=== PATIENT | female | born 1985 | race Caucasian/White ===

== ENCOUNTER → 2019-11-26 10:39 | Outpatient (BNVA) | payer BC, SELFPAY | PROVIDERS: Family Provider Nurse Practitioner Family; PCP Nurse Practitioner Family; Visit Provider Nurse Practitioner Family | DX: E11.59 Type 2 diabetes mellitus with other circulatory complications (principal); E78.5 Hyperlipidemia, unspecified; I10 Essential (primary) hypertension; E53.8 Deficiency of other specified B group vitamins; G56.03 Carpal tunnel syndrome, bilateral upper limbs; E78.2 Mixed hyperlipidemia | CPT/HCPCS: 36415; 80053; 80061; 82607; 83036; 83921; 84443; 85025 ==

== ENCOUNTER → 2019-12-02 07:39 | Outpatient (BNVA) | payer BC, SELFPAY | PROVIDERS: Family Provider Nurse Practitioner Family; PCP Nurse Practitioner Family; Referring Provider Nurse Practitioner Family; Visit Provider Specialist | DX: G56.03 Carpal tunnel syndrome, bilateral upper limbs (principal); F17.210 Nicotine dependence, cigarettes, uncomplicated | CPT/HCPCS: 95910 ==

== ENCOUNTER 2019-12-03 19:53 | Emergency (ER) | payer BC, SELFPAY ==
[2019-12-03 20:28] VITALS: BP 143/113; PULSE 93; RESP 16; TEMP 36.6; O2SAT 97; BMI 31.2
[2019-12-03 22:20] VITALS: BP 153/95; PULSE 93; RESP 18; TEMP 36.6; O2SAT 99
--- NOTE | 2019-12-03 22:25 | PC.NURSE ---
had nerve condution study yesterday am, and pain has gotten worse
[2019-12-03 22:30] VITALS: RESP 18
[2019-12-03] MEDS: morphine 4 mg/mL SDV 1 mL IM (22:30)
--- NOTE | 2019-12-03 22:49 | ED_ITS ---
HPI - Extremity Problem General: Chief complaint: Extremity Injury, Upper Stated complaint: pain in both hands Time Seen by Provider: 12/03/19 21:51 Source: patient Mode of arrival: ambulatory Limitations: no limitations History of Present Illness: HPI Narrative: Patient is a 34-year-old female who presents to ED today with complaints of bilateral hand pain. Patient states she is having numbness, tingling, burning to her hands. This is been present for several weeks. She has been seen by her primary care doctor. She is recently had nerve conduction studies done but does not know the results of these. Patient states her pain is even worse after the conduction studies. Patient reports they are thinking she might have bilateral carpal tunnel. MD Complaint: extremity pain Onset (ago): week(s) Pain Consistency: constant Location: left, right and upper extremity Quality: burning Radiation: none Relieving factors: nothing Exacerbating factors: nothing Associated symptoms: Deny chest pain, fever(s) or rash Review of Systems Const: Denies: fever, chills or body aches Card: Denies: chest pain, palpitations, irregular heart rhythm, edema, lightheadedness, syncope, pre-syncope, shortness of breath on exertion, shortness of breath when lying down, leg pain with exertion or bluish discoloration of hands/feet Resp: Denies: shortness of breath, productive cough, coughing up blood or chest congestion GI: Denies: abdominal pain, nausea or vomiting Musc: Reports: extremity pain; Denies: neck pain, back pain, extremity swelling, joint pain, joint swelling or limited range of motion Skin/Breast: Denies: rash, itching, skin tenderness, sores or changes in skin color Neuro: Reports: numbness in extremities and changes in sensation; Denies: headache PFSH ED PFSH: Medical History (Updated 12/03/19 @ 22:50 by CARLY Mary) Allergic reaction to bee sting Anxiety DM type 2 (diabetes mellitus, type 2) Essential hypertension GERD (gastroesophageal reflux disease) History of hepatitis C Hyperlipemia IUD contraception PCOS (polycystic ovarian syndrome) Primary herpes simplex infection of lips Vitamin B 12 deficiency Vitamin D deficiency Surgical History (Updated 11/26/19 @ 23:33 by DEMETRIUS Garrido) S/P section Social History Smoking and tobacco status: current every day smoker 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 Physical Exam Const: COMMON NORMALS: no apparent distress, oriented x3, no limitations, healthy appearing, alert and well nourished Extremity: COMMON NORMALS: normal to inspection, full ROM, normal capillary refill, no joint enlargement, no clubbing, cyanosis or edema, no calf tenderness and no pedal edema Neuro: COMMON NORMALS: oriented x3, moves all extremities and no focal motor deficits SENSORIUM/ORIENTATION: Yes alert OTHER: reports numbness/tingling diffusely throughout bilateral hands Course Vital Signs: Vital signs: Vital Signs Temperature 97.9 F 12/03/19 22:20 Pulse Rate 93 12/03/19 22:20 Respiratory Rate 18 12/03/19 22:30 Blood Pressure 153/95 12/03/19 22:20 Pulse Oximetry 99 12/03/19 22:20 Discharge Plan Discharge Patient Disposition: Home, Self-Care Clinical Impression: Carpal tunnel syndrome, bilateral Condition: Stable Prescriptions: No Action Trintellix 20 mg tablet 20 mg PO DAILY RF: 0 labetalol 100 mg tablet 100 mg PO BID RF: 0 ibuprofen [IBU] 800 mg tablet 800 mg PO TID RF: 0 omeprazole 20 mg capsule,delayed release(DR/EC) 20 mg PO DAILY RF: 0 epinephrine [EpiPen 2-Duong] 0.3 mg/0.3 mL auto-injector 0.3 mg IM Q10M PRN (Reason: Allergic Reaction) RF: 0 Mirena 20 mcg/24 hours (5 yrs) 52 mg intrauterine device INTRAUTERI RF: 0 tizanidine 4 mg capsule 4 mg PO TID PRN (Reason: Muscle Spasm) RF: 0 Ozempic 0.25 mg or 0.5 mg(2 mg/1.5 mL) pen injector 0.25 mg SUBCUT .weekly Qty: 1.5 RF: 5 Discharge Orders: Discharge Order (Routine); Ordered 12/03/19 Ordered By: Kavya Mojica Referrals: Tori Ware, [employer] [Primary Care Provider] - Activity Restrictions/Additional Instructions: As discussed please follow up with primary care and with Dr. Rod after test results of your nerve conduction studies come back. Coding Level of Care Code ED Member Service Specialist for Rickie Martinez
[2019-12-03 23:00] VITALS: BP 150/96; PULSE 90; RESP 18; TEMP 36.6; O2SAT 99
--- NOTE | 2019-12-03 23:17 | PC.NURSE ---
Agree with documented assessment.
== END 2019-12-03 23:00 | disposition home or self-care (01) ==
PROVIDERS: Emergency Provider Physician Assistant; Family Provider Nurse Practitioner Family; PCP Nurse Practitioner Family
DX: G56.03 Carpal tunnel syndrome, bilateral upper limbs (principal); E11.9 Type 2 diabetes mellitus without complications; I10 Essential (primary) hypertension; E78.5 Hyperlipidemia, unspecified; F17.200 Nicotine dependence, unspecified, uncomplicated
CPT/HCPCS: 96372; 99281; 99283; J2270; J2930

== ENCOUNTER 2019-12-16 11:02 | Day surgery (SDC) | payer BC, SELFPAY ==
[2019-12-13 13:34] VITALS: BMI 31.8
[2019-12-16 11:17] LABS: OR HCG Qualitative Urine Negative (Negative)
[2019-12-16 11:26] VITALS: BP 116/83; PULSE 76; RESP 18; TEMP 36.3; O2SAT 96
[2019-12-16 11:44] LABS: Glucose Point of Care 83 mg/dL (70-110)
[2019-12-16] MEDS: sodium chloride 0.9% 1,000 ML 30 ML IV (11:48)
[2019-12-16] MEDS: gabapentin 300 mg Capsule PO (11:51)
--- NOTE | 2019-12-16 12:19 | ANES.PREANE2 ---
Pre-Anesthetic Assessment Pre-Anesthetic Assessment: Height/Weight: Height 1.57 m Weight 78.925 kg Temp Pulse Resp BP Pulse Ox 97.4 F L 76 18 116/83 96 12/16/19 11:26 12/16/19 11:26 12/16/19 11:26 12/16/19 11:26 12/16/19 11:26 Preop Diagnosis: Carpal tunnel syndrome Proposed Procedure: Operation Date: 12/16/19 13:20 Proposed Procedures p Open release of the median nerve at the wrist on the right 12376 G56.03(Right) - Gilmar Joyner MD Familial anesthetic complications: None Was Beta David taken within 24 hours: Yes Last intake: Intake Last Liquid Date 12/16/19 Last Liquid Time 06:00 Last Solid Date 12/15/19 Last Solid Time 21:00 Social: Social History: Tobacco and No alcohol Packs per day: 2 ppd Exam: Pre-Anes Outpt Exam: alert, oriented x 3, clear to auscultation bilaterally and regular rate & rhythm Airway: Cervical ROM: WNL MP: 1 Dentition: Chipped Pulmonary: Pulmonary: Sleep apnea (has since lost 100 lbs - has cpap, but doesn't wear it) CV/HEM: CV/HEM: Angina (Stable) (atypical) and HTN : : None reported Hepatic: Hepatic: None reported GI: GI: GERD Metabolic: Metabolic: DM Musc/skel: Musc/skel: Lower Back Pain Neuropsych: Neuropsych: Neuropathy Anesthetic Plan: ASA status: 2 Anesthesia: MAC Risk of > 500 ml blood loss (7ml/kg in children): No Meds/Allergies Current Medications: Current Medications Generic Name Dose Route Start Last Admin Trade Name Freq PRN Reason Stop Dose Admin Sodium Chloride 1,000 mls @ 30 ml s/hr 12/16/19 11:15 12/16/19 11:48 Sodium Chloride 0.9% IV 12/17/19 11:14 30 mls/hr .Q24H FATOUMATA Administration PFSH Anesthesia PFSH: Social History (Updated 12/13/19 @ 13:31 by Renuka Ulloa) Smoking and tobacco status: current every day smoker Alcohol intake: never Lives independently: Yes Household members: spouse Marital status: Current occupational status: employed 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
--- NOTE | 2019-12-16 12:31 | P.HPUD_ITS ---
Surgery/Procedure H&P Update DATE OF PROCEDURE: December 16, 2019 DATE H&P PERFORMED: 11/26/19 H&P UPDATE INFORMATION: I have reviewed H&P completed within last 30 days and H&P is in [facility] [place] on date indicated PREOP DIAGNOSIS: Carpal tunnel syndrome PRIMARY INDICATION FOR PROCEDURE: Pain/Numbness PLANNED PROCEDURE: Operation Date: 12/16/19 13:20 Proposed Procedures Open release of the median nerve at the wrist on the right 73527 G56.03 - Gilmar Joyner MD
--- NOTE | 2019-12-16 13:01 | P.OP_ITS ---
Brief Operative Note: Date of procedure: 12/16/19 Pre-op diagnosis: Median nerve entrapment at the right wrist Post-op diagnosis: same Procedure Done: Open Release of the Median Nerve at the right wrist Surgeon: Gilmar Joyner Estimated blood loss (mL): 10 Complications: None. Post-op Plan: Home per Ambulatory Surgery protocol. Condition: stable Disposition: same day Coding Level of Care Code Acute Escalator Service Mechanic for Rickie Martinez
[2019-12-16] MEDS: neomycin-poly-bacitracin oint 28 gm 1 APPLIC TOPICAL (13:41)
[2019-12-16 13:53] VITALS: BP 110/77; PULSE 77; RESP 18; TEMP 36.5; O2SAT 95
[2019-12-16 14:23] VITALS: BP 121/86; PULSE 57; RESP 18; O2SAT 99
--- NOTE | 2019-12-16 16:48 | P.OP_ITS ---
Operative Report Date of procedure: December 16, 2019 Pre-op Diagnosis: Carpal tunnel syndrome Post-op diagnosis: same Procedure Done: Open release of the median nerve at the right wrist. Pathology: none sent Surgeon: Gilmar Joyner Anesthesia: MAC Estimated blood loss: Minimal IV fluids (mL): 400 Complications: None Condition: stable Disposition: same day Brief History: The patient is a 34-year-old female with symptomatic, electrodiagnostically confirmed severe median nerve entrapment at the wrists. Symptoms progressed and were refractory to conservative treatment measures, including wrist splinting. After review of the diagnostic and treatment options with the risks/potential benefits/rationale for each, the patient requested to proceed with open release of the median nerve at the right wrist. Procedure: After routine preoperative evaluation and informed consent were obtained, the patient was taken to the Operating Room and positioned supine on the operating table. She was maintained under intravenous sedation by Anesthesia personnel. The right upper extremity was extended on an arm board. A proposed palmar incision was marked with a sterile skin marker. The extremity was scrubbed with Betadine and prepped with DuraPrep from the fingertips to the axilla. Sterile towels, sterile drapes, and a sterile stockinette were utilized for draping of the operative field. An opening was fashioned in the sterile stockinette over the palmar aspect of the right hand. An [place] surgical barrier was placed. The proposed incision site was infiltrated with 1% Xylocaine with Epinephrine. A skin incision was made and carried down into the subcutaneous tissues. Self-retaining retractors were placed. The markedly thickened transverse carpal ligament was divided over the course of the median nerve in the palm. The ligament was divided distally until the palmar fat pad was encountered. Proximally, the ligament was divided with fine Metzenbaum scissors to a point approximately 2 centimeters above the wrist crease. There were moderate diffuse epineural adhesions, which were treated with limited a dhesiolysis. There was no evidence of residual median nerve impingement or entrapment within the visualized segment of the nerve at the completion of the procedure. The wound was then copiously irrigated with antibiotic irrigation. Hemostasis was ensured with the bipolar electrocautery. Wound closure was performed as a single layer utilizing 4-0 Nylon in a simple interrupted fashion. Antibiotic ointment was placed along the incision line. A bulky hand dressing was fashioned utilizing a combination of Kerlix fluffs, a Kerlix wrap, and an MIGUEL/elastic bandage. The patient was transported to the Ambulatory Surgery Area for discharge home, as per the Ambulatory Surgery protocol. The patient tolerated the procedure well. All sponge, needle, and instrument counts were correct at the completion of the procedure.
== END 2019-12-16 14:45 | disposition home or self-care (01) ==
PROVIDERS: Family Provider Nurse Practitioner Family; PCP Nurse Practitioner Family; Visit Provider Specialist
PROC: (CPT 64721; principal; 2019-12-16 12:40)
DX: G56.01 Carpal tunnel syndrome, right upper limb (principal); I10 Essential (primary) hypertension; K21.9 Gastro-esophageal reflux disease without esophagitis; E11.40 Type 2 diabetes mellitus with diabetic neuropathy, unspecified; F17.210 Nicotine dependence, cigarettes, uncomplicated; E78.2 Mixed hyperlipidemia
CPT/HCPCS: 64721; 12345; 36416; 81025; 82962; 84703; J0690; J2001; J2704; J3010; J3490; J7030

== ENCOUNTER 2020-02-19 16:04 | Inpatient (IN) | payer SELFPAY ==
[2020-02-19 16:14] VITALS: BP 178/123; PULSE 118; RESP 20; TEMP 36.9; O2SAT 97; BMI 31.8
--- NOTE | 2020-02-19 16:18 | ED_ITS ---
HPI - Psych General: Chief Complaint: Psychiatric Symptoms Stated Complaint: mhe Time Seen by Provider: 02/19/20 16:06 Source: patient Mode of arrival: ambulatory Limitations: no limitations History of Present Illness: HPI Narrative: 35-year-old female who has a history of depression and is homeless and has a history of drug abuse. She states she is having increasing depression and thoughts of suicide. She has plans of killing herself by running out in traffic. She has not been taking any meds. complaint: suicidal ideation and feels depressed Onset (ago): week(s) Duration: constant History of same: Yes Relieving factors: none Exacerbating factors: none Context: recent drug abuse Associated symptoms: Reports depression and suicidal ideation Review of Systems Const: Denies: fever, chills, body aches or change in appetite Eyes: Denies: blurry vision or eye discomfort ENMT: Denies: throat pain or dental pain Card: Denies: chest pain Resp: Denies: shortness of breath GI: Denies: abdominal pain, nausea, vomiting or diarrhea : Denies: painful urination Musc: Denies: neck pain or back pain Skin/Breast: Denies: rash Neuro: Denies: headache Psych: Reports: depression and suicidal ideation [place]/Lymph: Denies: easy bruising All/Imm: Denies: hives PFSH ED PFSH: Medical History Allergic reaction to bee sting Anxiety DM type 2 (diabetes mellitus, type 2) Essential hypertension GERD (gastroesophageal reflux disease) History of hepatitis C Hyperlipemia IUD contraception PCOS (polycystic ovarian syndrome) Primary herpes simplex infection of lips Vitamin B 12 deficiency Vitamin D deficiency Surgical History History of carpal tunnel surgery (~12/16/19) Right hand, Dr. 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 [employer] History of recent travel: No Female Reproductive History: Date of last menstrual period: 09/30/19 Physical Exam Const: COMMON NORMALS: no apparent distress, oriented x3 and healthy appearing HENMT: COMMON NORMALS: normocephalic and head/scalp atraumatic HEAD & SCALP: normocephalic and atraumatic Eye: COMMON NORMALS: PERRL and EOMs intact bilaterally PUPIL: Yes PERRL Neck/C-Spine: COMMON NORMALS: full ROM and supple Chest: COMMONS NORMALS: inspection of chest normal and palpation of chest normal Resp: COMMON NORMALS: normal respiratory effort, no retractions, no use of accessory muscles and clear to auscultation bilaterally AUSCULTATION: clear to auscultation bilaterally Cardio: COMMON NORMALS: regular rate, regular rhythm and no murmurs RATE: regular rate RHYTHM: regular rhythm GI: COMMON NORMALS: normal to inspection, nondistended, normoactive bowel sounds, soft to palpation, non-tender and no masses PALPATION: Yes soft Extremity: COMMON NORMALS: normal to inspection and full ROM Neuro: COMMON NORMALS: oriented x3, moves all extremities and no focal motor deficits Psych: COMMON NORMALS: mental status grossly normal, thought process normal and cooperative MOOD & AFFECT: Yes depressed mood and Yes sad THOUGHT PROCESS: normal thought process THOUGHT CONTENT: Yes suicidality Skin: COMMON NORMALS: no rashes or lesions noted and no wounds GENERAL SKIN EXAM: no rashes or lesions noted MDM - Psych MDM Narrative: Medical decision making narrative: Patient presents here with suicidal ideations with a plan of killing herself. Patient is medically cleared I spoke to Dr. Coleman and will admit the psychiatric unit. Lab Data: Labs: Lab Results 02/19/20 02/19/20 02/19/20 Range/Units 16:26 16:26 17:11 WBC 9.5 (4.0-10.0) 10^3/ uL RBC 5.17 (4.1-5.3) 10^6/u L Hgb 15.3 (11.5-15.3) g/dL Hct 48.3 H (37.0-47.0) % MCV 93.4 (81-99) fL MCH 29.6 (28.0-34.0) pg MCHC 31.7 (30.0-36.0) g/dL RDW 13.3 (12.1-15.1) % Plt Count 392 (130-400) 10^3/c mm MPV 9.3 (7.4-10.4) fL Neut % (Auto) 56.1 % Lymph % (Auto) 30.6 % Bartholomew % (Auto) 10.3 % Eos % (Auto) 2.1 % Baso % (Auto) 0.7 % Neut # (Auto) 5.4 (1.8-7.7) 10^3/u L Lymph # (Auto) 2.9 (0.8-4.8) 10^3/u L Bartholomew # (Auto) 1.0 H (0.2-0.9) 10^3/u L Eos # (Auto) 0.2 (0.0-0.8) 10^3/u L Baso # (Auto) 0.1 (0.0-0.1) 10^3/u L Nucleated RBC % (a uto) 0 % Nucleated RBCs # 0.0 /100WBC Sodium 143 (136-145) mmol/L Potassium 4.9 (3.5-5.1) mmol/L Chloride 105 (98-107) mmol/L Carbon Dioxide 26 (22-29) mmol/L Anion Gap 16.9 (5-19) BUN 9 (6-20) mg/dL Creatinine 0.8 (0.5-0.9) mg/dL GFR Calculation 81.6 L (90-130) mL/min Glucose 95 (65-115) mg/dL Calculated Osmolal ity 292 (285-295) mOsm/k g Calcium 9.3 (8.5-10.5) mg/dL Total Bilirubin 0.6 (0.15-1.2) mg/dL AST 21 (0-32) U/L ALT 13 (0-33) U/L Alkaline Phosphata se 102 (35-105) IU/L Total Protein 7.6 (6.6-8.7) g/dL Albumin 4.2 (3.5-5.2) g/dL Globulin 3.4 (1.3-4.6) g/dL HCG, Qual Negative (Negative) Salicylates 4.2 (3-10) mg/dL Acetaminophen < 5.0 L (10-30) ug/mL Ethyl Alcohol < 10 (0-10) mg/dL Discharge Plan Discharge Patient Disposition: Admitted As Inpatient Clinical Impression: Suicidal ideation Condition: Stable Referrals: MARYELLEN Ware FNP [Primary Care Provider] - Coding Level of Care Code ED Flow Worker for Chg Fwd Exam Comprehensive
[2020-02-19 16:50] LABS: Basophils # 0.1 10^3/uL (0.0-0.1); Basophils % 0.7 %; Eosinophils # 0.2 10^3/uL (0.0-0.8); Eosinophils % 2.1 %; Hematocrit 48.3 % (37.0-47.0); Hemoglobin 15.3 g/dL (11.5-15.3); Lymphocytes # 2.9 10^3/uL (0.8-4.8); Lymphocytes % 30.6 %; Mean Corpuscular HGB Conc 31.7 g/dL (30.0-36.0); Mean Corpuscular Hemoglobin 29.6 pg (28.0-34.0); Mean Corpuscular Volume 93.4 fL (81-99); Mean Platelet Volume 9.3 fL (7.4-10.4); Monocytes % 10.3 %; Neutrophils # 5.4 10^3/uL (1.8-7.7); Neutrophils % 56.1 %; Nucleated Red Blood Cells % 0 %; Platelet Count 392 10^3/cmm (130-400); Red Blood Count 5.17 10^6/uL (4.1-5.3); Red Cell Distribution Width 13.3 % (12.1-15.1); White Blood Count 9.5 10^3/uL (4.0-10.0)
[2020-02-19] MEDS: LORazepam 2 mg Tablet PO (17:01)
[2020-02-19 17:18] LABS: Alanine Aminotransferase 13 U/L (0-33); Albumin Level 4.2 g/dL (3.5-5.2); Alkaline Phosphatase 102 IU/L (35-105); Anion Gap 16.9 (5-19); Aspartate Amino Transferase 21 U/L (0-32); Blood Urea Nitrogen 9 mg/dL (6-20); Calcium 9.3 mg/dL (8.5-10.5); Carbon Dioxide 26 mmol/L (22-29); Chloride 105 mmol/L (98-107); Globulin 3.4 g/dL (1.3-4.6); Glomerular Filtration Rate 81.6 mL/min (90-130); Glucose 95 mg/dL (65-115); Osmolality Calculated 292 mOsm/kg (285-295); Potassium 4.9 mmol/L (3.5-5.1); Salicylate 4.2 mg/dL (3-10); Sodium 143 mmol/L (136-145); Total Bilirubin 0.6 mg/dL (0.15-1.2); Total Protein 7.6 g/dL (6.6-8.7)
[2020-02-19 17:29] LABS: Acetaminophen < 5.0 ug/mL (10-30); Alcohol Level < 10 mg/dL (0-10)
[2020-02-19 17:39] LABS: HCG Qualitative Urine. Negative (Negative)
[2020-02-19 17:45] LABS: Amphetamines Screen Urine Positive (Negative); Barbiturates Screen Urine Negative (Negative); Benzodiazepines Screen Urine Negative (Negative); Cocaine Screen Urine Negative (Negative); Opiate Screen Urine Negative (Negative); PCP Screen Urine Negative (Negative); THC Screen Urine Positive (Negative)
[2020-02-19 17:51] VITALS: BP 137/94; PULSE 98; RESP 18; O2SAT 97
[2020-02-19 17:55] VITALS: BP 139/97; PULSE 90; RESP 20; TEMP 36.8; O2SAT 98
[2020-02-19 22:00] VITALS: BP 128/82; PULSE 88; RESP 16; TEMP 37; O2SAT 99
[2020-02-20 06:00] VITALS: BP 123/82; PULSE 72; RESP 20; TEMP 36.6; O2SAT 98
[2020-02-20 06:37] VITALS: BP 123/82; PULSE 72; RESP 20; TEMP 36.6; O2SAT 98
[2020-02-20] MEDS: nicotine 21 mg Patch 1 PATCH TRANSDERMA (07:49)
[2020-02-20] MEDS: hyDROXYzine 25 mg Capsule 50 MG PO (10:13)
[2020-02-20] MEDS: haloperidol 5 mg Tablet PO (10:13)
--- NOTE | 2020-02-20 10:13 | PC.NURSE ---
Addendum entered by Yovana Wu LPN 02/20/20 11:31: PRN MEDS EFFECTIVE NO FURTHER C/O ANXIETY OR AGITATION. PT ASLEEP IN BED IN ROOM CURRENTLY, NO S/S OF DISTRESS NOTED Original Note: PRN VISTARIL & HALDOL VISTARIL 50 MG GIVEN PO PER PT C/O SEVERE ANXIETY. HALDOL 5 MG GIVEN PO PER PT C/O SEVERE AGITATION. PT MOOD IRRITABLE, SOBBING IN HER ROOM. AGGRAVATED ABOUT THE BRIGHT SUN SHINING IN HER ROOM! DEMANDING TO BE MOVED TO ANOTHER ROOM SO SHE DOESN'T GET BURNT TO A CRISP! PT MOVED TO DIFFERENT ROOM TO HELP EASE HER ANXIETY. UPSET THAT HER CHILDREN TOLD HER THAT THEY DIDN'T WANT ANYTHING TO DO WITH HER. WILL CONT TO MONITOR.
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
[2020-02-20 14:56] VITALS: BP 124/77; PULSE 71; RESP 18; TEMP 37.2; O2SAT 98
[2020-02-20 22:32] VITALS: BP 123/80; PULSE 70; RESP 18; TEMP 36.6; O2SAT 98
[2020-02-21 06:00] VITALS: BP 137/92; PULSE 71; RESP 16; TEMP 36.6; O2SAT 98
[2020-02-21] MEDS: nicotine 21 mg Patch 1 PATCH TRANSDERMA (13:34)
[2020-02-21] MEDS: acetaminophen 325 mg Tablet 650 MG PO (13:36)
[2020-02-21 14:00] VITALS: BP 126/75; PULSE 78; RESP 18; TEMP 36.9; O2SAT 96
--- NOTE | 2020-02-21 14:35 | PM.NPN ---
Mental Status Exam MSE Comments: This is an obese white female with limited dress grooming and eye contact. No abnormal movements except for psychomotor agitation. semicooperative with exam. In moderate to extreme distress. Speech was increased rate and volume. Mood described as depressed, affect congruent and agitated. Thought process organized. Thought content: Patient denied any suicidal or homicidal ideation, there were no delusions reported or noted, she denies auditory visual hallucinations and does not appear to be attending to internal stimuli. Attention and concentration are improving and memory is unreliable but none were formally tested. She is alert and oriented to person and place. Insight and judgment are limited. Vitals/I&O/Wt Last Vital Signs Temp 97.8 F 02/21/20 06:00 Pulse 71 02/21/20 06:00 Resp 16 02/21/20 06:00 BP 137/92 02/21/20 06:00 Pulse Ox 98 02/21/20 06:00 Data NPU : 02/19/20 16:26 02/19/20 16:26 A&P Additional A&P Information (1) Suicidal ideation: This is a 35-year-old white female with a long history of mental health issues and addiction who presents reporting depression, suicidal ideation and anxiety and a desire to get back on her medication but is also somewhat ambivalent also focusing on discharge. 1. Continue current medication and start Cymbalta 20 mg p.o. twice daily and Wellbutrin XL 150 mg p.o. every morning. 2. Encourage individual, group and milieu therapy. 3. Continue every 15 minute checks for safety. 4. Work with social work team to find a sober living program, hopefully residential, at the highest level of care to which she is willing to commit. (2) Anxiety: (3) Depression: (4) Cannabis abuse: (5) Methamphetamine abuse: Involuntary Hold Information 96 Hour Hold: 96 Hour Involuntary Admission: Yes 96 Hour Hold Ending Date: 02/25/20 96 Hour Hold Ending Time: 05:45 Attestations NPU Medical Necessity Statement*: Inpatient hospitalization is medically necessary and the clinically appropriate intervention at this time. We will continue medications and make changes as indicated. Likely length of stay 2-4 days. Coding Level of Care Code Acute Rope Making Machine Operator for Rickie Martinez
[2020-02-21] MEDS: duloxetine 20 mg Capsule PO (17:39)
[2020-02-21] MEDS: nicotine 2 mg Gum BUCCAL (19:31)
[2020-02-21] MEDS: hyDROXYzine 25 mg Capsule 50 MG PO (20:40)
[2020-02-21] MEDS: trazodone 50 mg Tablet PO (20:41)
--- NOTE | 2020-02-21 20:45 | PC.NURSE ---
PRN VISTARIL & TRAZODONE VISTARIL 50 MG PO ADMINISTERED FOR PT C/O OF ANXIETY AND TRAZODONE 50MG PO GIVEN FOR SLEEP AID. WILL MONITOR FOR MEDICATION EFFECTIVENESS.
[2020-02-21 22:00] VITALS: BP 140/102; PULSE 73; RESP 18; TEMP 36.5; O2SAT 99
[2020-02-22 06:00] VITALS: BP 132/88; PULSE 64; RESP 16; TEMP 36.8; O2SAT 97
[2020-02-22] MEDS: buPROPion XL (24 HR) 150 mg Tablet PO (08:42)
[2020-02-22] MEDS: duloxetine 20 mg Capsule PO ×2 (08:42→18:00)
[2020-02-22] MEDS: acetaminophen 325 mg Tablet 650 MG PO (08:45)
[2020-02-22] MEDS: nicotine 2 mg Gum BUCCAL (09:15)
[2020-02-22] MEDS: nicotine 21 mg Patch 1 PATCH TRANSDERMA (12:30)
[2020-02-22 14:00] VITALS: BP 137/95; PULSE 78; RESP 18; TEMP 36.6; O2SAT 97
--- NOTE | 2020-02-22 14:35 | PM.NPN ---
Subjective NPU Subjective: Interval history: Leonor presented today endorsing that the medication restarted yesterday were helpful and that she is feeling little better. She denies any specific side effects from the medications and reports that she is eating and sleeping better. Mental Status Exam MSE Comments: This is an obese white female with limited dress grooming and eye contact. No abnormal movements except for psychomotor agitation. more cooperative with exam. In no acute distress. Speech was normal rate and volume. Mood described as better, affect congruent. Thought process organized. Thought content: Patient denied any suicidal or homicidal ideation, there were no delusions reported or noted, she denies auditory visual hallucinations and does not appear to be attending to internal stimuli. Attention and concentration are improving and memory is more reliable but none were formally tested. She is alert and oriented x 3. Insight and judgment are limited but improving. Vitals/I&O/Wt Last Vital Signs Temp 98.2 F 02/22/20 22:00 Pulse 88 02/22/20 22:00 Resp 18 02/22/20 22:00 BP 142/95 02/22/20 22:00 Pulse Ox 98 02/22/20 22:00 Data NPU : 02/19/20 16:26 02/19/20 16:26 A&P Additional A&P Information (1) Suicidal ideation: This is a 35-year-old white female with a long history of mental health issues and addiction who presents reporting depression, suicidal ideation and anxiety and a desire to get back on her medication. 1. Continue current medication. 2. Encourage individual, group and milieu therapy. 3. Continue every 15 minute checks for safety. 4. Work with social work team to find a sober living program, hopefully residential, at the highest level of care to which she is willing to commit. (2) Anxiety: (3) Depression: (4) Cannabis abuse: (5) Methamphetamine abuse: Involuntary Hold Information 96 Hour Hold: 96 Hour Involuntary Admission: Yes 96 Hour Hold Ending Date: 02/25/20 96 Hour Hold Ending Time: 05:45 Attestations NPU Medical Necessity Statement*: Inpatient hospitalization is medically necessary and the clinically appropriate intervention at this time. We will continue medications and make changes as indicated. Likely length of stay 1-3 days. Coding Level of Care Code Acute Experience Designer for Rickie Martinez
[2020-02-22] MEDS: trazodone 50 mg Tablet PO (20:02)
[2020-02-22 22:00] VITALS: BP 142/95; PULSE 88; RESP 18; TEMP 36.8; O2SAT 98
[2020-02-23 06:00] VITALS: BP 130/85; PULSE 63; RESP 18; TEMP 36.7; O2SAT 97
[2020-02-23] MEDS: duloxetine 20 mg Capsule PO ×2 (08:16→17:11)
[2020-02-23] MEDS: buPROPion XL (24 HR) 150 mg Tablet PO (08:16)
[2020-02-23] MEDS: nicotine 2 mg Gum BUCCAL ×3 (10:16→17:13)
[2020-02-23 14:00] VITALS: BP 108/67; PULSE 102; RESP 17
--- NOTE | 2020-02-23 16:11 | PM.NPN ---
Subjective NPU Subjective: Interval history: Leonor presents today responding to the medication and doing much better than she was a few days ago. She acknowledges that she continues to be on a 96-hour hold and she wants to leave however I continue to work with her on a plan to consider ongoing resources after discharge and we agree will work with the treatment team on Monday to make sure she is scheduled for appropriate aftercare. She reports that she is eating and sleeping fine. Mental Status Exam MSE Comments: This is an obese white female with adequate dress grooming and eye contact. No abnormal movements except for mild psychomotor retardation. more cooperative with exam. In no acute distress. Speech was normal rate and volume. Mood described as pretty good, affect congruent. Thought process organized. Thought content: Patient denied any suicidal or homicidal ideation, there were no delusions reported or noted, she denies auditory visual hallucinations and does not appear to be attending to internal stimuli. Attention and concentration are improving and memory is more reliable but none were formally tested. She is alert and oriented x 3. Insight and judgment are improving. Vitals/I&O/Wt Last Vital Signs Temp 97.8 F 02/23/20 22:00 Pulse 76 02/23/20 22:00 Resp 16 02/23/20 22:00 BP 137/86 02/23/20 22:00 Pulse Ox 98 02/23/20 22:00 Weight last 48 hrs Weight 77.337 kg Data NPU : 02/19/20 16:26 02/19/20 16:26 A&P Additional A&P Information (1) Suicidal ideation: This is a 35-year-old white female with a long history of mental health issues and addiction who presents reporting depression, suicidal ideation and anxiety and a desire to get back on her medication. 1. Continue current medication. 2. Encourage individual, group and milieu therapy. 3. Continue every 15 minute checks for safety. 4. Work with social work team to find a sober living program, hopefully residential, at the highest level of care to which she is willing to commit. (2) Anxiety: (3) Depression: (4) Cannabis abuse: (5) Methamphetamine abuse: Involuntary Hold Information 96 Hour Hold: 96 Hour Involuntary Admission: Yes 96 Hour Hold Ending Date: 02/25/20 96 Hour Hold Ending Time: 05:45 Attestations NPU Medical Necessity Statement*: Inpatient hospitalization is medically necessary and the clinically appropriate intervention at this time. We will continue medications and make changes as indicated. Likely length of stay 1-2 days.Consider discharge monday. Coding Level of Care Code Acute Flight Crew Scheduler for Rickie Martinez
[2020-02-23] MEDS: hyDROXYzine 25 mg Capsule 50 MG PO (20:42)
--- NOTE | 2020-02-23 21:40 | PC.NURSE ---
pt offered and given hydroxyzine to aide with anxiety.
[2020-02-23 22:00] VITALS: BP 137/86; PULSE 76; RESP 16; TEMP 36.6; O2SAT 98
[2020-02-24 06:00] VITALS: BP 125/78; PULSE 83; RESP 18; TEMP 37; O2SAT 97
[2020-02-24] MEDS: nicotine 2 mg Gum BUCCAL (06:39)
[2020-02-24] MEDS: buPROPion XL (24 HR) 150 mg Tablet PO (09:22)
[2020-02-24] MEDS: duloxetine 20 mg Capsule PO (09:22)
--- NOTE | 2020-02-24 10:53 | P.DS_ITS ---
Diagnoses at Discharge Discharge Diagnosis (1) Suicidal ideation: Status: Resolved Problem details: resolved (2) Anxiety: Status: Chronic Problem details: chronic (3) Depression: Status: Chronic (4) Cannabis abuse: Status: Chronic (5) Methamphetamine abuse: Status: Resolved Reason for Visit Reason for Visit: Reason For Visit: SI, 96 HR HOLD Brief History: Leonor Hagan is a 35 year old female who presents today reporting that she is extremely depressed. She endorsed that her brought her to the hospital secondary to her really struggling with her addiction as well as her mental health. She endorses that she has not been taking her medication. That has been the case for some time. We discussed the risks benefits and alternatives of initiating medication and she understood and agreed to proceed with a trial of Prozac. Additionally she started really focusing on when she would leave and we agreed that the most important thing was to focus on her getting well and regaining her sobriety and not so much when she leaves. We reviewed the information from her previous evaluation in January 2017 as she reports that not much is changed. Excerpts of that can be seen below. Of note her UDS was positive for cannabis and methamphetamine. Per last [facility] IP eval: History of Present Illness Date of Service: Feb 02, 2017 Chief Complaint: Patient admitted due to reports of suicidal thoughts HPI: Leonor is a long-standing history of a mood disorder. She also has a history of substance abuse. Her drug of choice is methamphetamine. Please note that she is been in remission for at least 2 years at this point. Patient states that she is been experiencing progressive decline in mood that is culminated having some suicidal thoughts. Ultimately, patient presented to the emergency room where psychiatric hospitalization was pursued. Patient's symptom profile was consistent with a major depressive disorder recurrent and severe. Patient reports numerous symptoms of depression including depressed mood, fatigability, anhedonia, crying spells, a sense of hopelessness, disproportionate guilt and suicidal thoughts. Patient has been on numerous medications in the past. As we discussed numerous treatment options we agreed agreed upon a combination of Wellbutrin and quetiapine. Please note patient does have diabetes and blood sugars are elevated. I recommended that she trial some metformin. Potential risks and benefits are discussed and she agrees to that. Allergies: Coded Allergies: No Known Allergies (Verified , 11/20/05) Active Meds: Hospital Course Hospital Course Patient was admitted to the adult psychiatric unit and entered into the full array of individual and group therapies as part of the protocol. She received 24 hour access to trained nursing care. She was assessed by psychiatrist who initiated a combination of Wellbutrin and Cymbalta. She was able to repeat information provided to her regarding potential benefits and side effects of these medications. Though she only had 2 days of the medication, she also acknowledged that the contingency plan for intolerable side effects or signs of madisyn was to discontinue one of the medications. She stated she would likely discontinue the Wellbutrin as she had taken Cymbalta in the past with significant benefit. Involuntary Hold Information 96 Hour Hold: 96 Hour Involuntary Admission: Yes 96 Hour Hold Ending Date: 02/25/20 96 Hour Hold Ending Time: 05:45 Mental Status Exam MSE Comments: Discharge Mental Status Exam: Appearance: hygiene is good; no gross neurological deficits., gait is unremarkable; AIMS=0 Speech: Speech is of normal rate and rhythm and easily understood. Thought processes: Thought processes are abstract. Judgment is adequate for safety. Associations: intact Psychotic processes: There is no indication of guarding or paranoia. There is no attention to the internal stimuli. Auditory and visual hallucinations are denied. Judgment: Insight is fair. Problem solving skills are adequate for safety. Orientation: The patient is oriented to person, place time and situation. Memory: no deficits noted in immediate, intermediate, or remote spheres. Attention: The patient is alert and interpersonally engaged. Language: Verbalizations are coherent. Fund of knowledge: Fund of knowledge is adequate. Affect/Mood: Affect is consistent with a euthymic mood. denied suicidal ideation Affective range is appropriate. Psychosis: perception unimpaired except through cognitive distortion; reality testing intact. Discharge Data Vitals: Last Vital Signs Temp 98.6 F 02/24/20 06:00 Pulse 83 02/24/20 06:00 Resp 18 02/24/20 06:00 BP 125/78 02/24/20 06:00 Pulse Ox 97 02/24/20 06:00 Discharge Plan Discharge Patient Disposition: Home, Self-Care Condition: Stable Prescriptions: New hydroxyzine pamoate 25 mg Capsule 50 mg PO Q6H PRN (Reason: Anxiety) Qty: 30 RF: 3 bupropion HCl 150 mg Tablet Extended Release 24 Hr 150 mg PO DAILY Qty: 30 RF: 3 duloxetine 20 mg Capsule,Delayed Release(Dr/Ec) 40 mg PO DAILY Qty: 30 RF: 3 Continued labetalol 100 mg tablet 100 mg PO BID RF: 0 omeprazole 20 mg capsule,delayed release(DR/EC) 20 mg PO DAILY RF: 0 epinephrine [EpiPen 2-Duong] 0.3 mg/0.3 mL auto-injector 0.3 mg IM Q10M PRN (Reason: Allergic Reaction) RF: 0 Mirena 20 mcg/24 hours (5 yrs) 52 mg intrauterine device See Rx Instructions .ROUTE .COMPLEX RF: 0 tizanidine 4 mg capsule 6 mg PO TID PRN (Reason: Muscle Spasm) RF: 0 Ozempic 0.25 mg or 0.5 mg(2 mg/1.5 mL) pen injector 0.25 mg SUBCUT .weekly Qty: 1.5 RF: 5 nicotine See Rx Instructions .ROUTE .COMPLEX RF: 0 Discontinued ibuprofen [IBU] 800 mg tablet 800 mg PO TID PRN (Reason: Pain) RF: 0 paroxetine HCl [Paxil] 20 mg tablet 20 mg PO DAILY Qty: 30 RF: 0 buspirone 10 mg tablet 10 mg PO BID Qty: 60 RF: 0 hydrocodone-acetaminophen [[place]] 7.5-325 mg tablet 1 tab PO Q4H PRN (Reason: pain) Qty: 20 RF: 0 Discharge Orders: Discharge Order (Routine); Ordered 02/24/20 Ordered By: French Winter Referrals: [facility] [Outside] (To initiate services at [facility] go during their walk-in hours and request initial intake walk-in hours are Monday through Monday 7:30 a.m.-2:30 p.m. Go any time within the walk-in hours but it is best to go earlier in the day. ) [facility] [Outside] MARYELLEN Ware, MULCHER OPERATOR [Primary Care Provider] - Discharge Diet: Advance as tolerated Discharge Activity: Increase activity as tolerated Activity Restrictions/Additional Instructions: If you go to [place], you could go to [facility] for initial intake: [place] [address] phone [phone] Another resource for addiction help in [place]: Residential program: [facility]: [phone] [facility] Resource for outpatient mental health help in [place]: [place] [address] phone [phone] Discharge Attestations NPU Time Spent in Discharge Care*: greater than 30 min Coding Level of Care Code Acute Traffic Control Specialist for Chg Fwd Diagnoses Suicidal ideation R45.851 Anxiety F41.9 Depression F32.9 Cannabis abuse F12.10 Methamphetamine abuse F15.10
[2020-02-24 11:11] VITALS: BP 125/78; PULSE 83; RESP 18; TEMP 37; O2SAT 97
== END 2020-02-24 11:25 | disposition home or self-care (01) | DRG 881 ==
LOC: ER 17:50 → NP 17:50
PROVIDERS: Admitting Provider Psychiatry & Neurology Psychiatry; Emergency Provider Emergency Medicine; PCP Nurse Practitioner Family; Visit Provider Psychiatry & Neurology Psychiatry
DX: F32.9 Major depressive disorder, single episode, unspecified (principal); R45.851 Suicidal ideations; F12.10 Cannabis abuse, uncomplicated; F15.10 Other stimulant abuse, uncomplicated; E11.9 Type 2 diabetes mellitus without complications; J45.909 Unspecified asthma, uncomplicated; G89.29 Other chronic pain; M54.9 Dorsalgia, unspecified; Z86.19 Personal history of other infectious and parasitic diseases; F41.9 Anxiety disorder, unspecified; I10 Essential (primary) hypertension; K21.9 Gastro-esophageal reflux disease without esophagitis; E78.5 Hyperlipidemia, unspecified; E53.8 Deficiency of other specified B group vitamins; E55.9 Vitamin D deficiency, unspecified
CPT/HCPCS: 12345; 36415; 80053; 80306; 80307; 81025; 85025; 99284; A9270

== ENCOUNTER → 2022-01-27 09:25 | Outpatient (BNVA) | payer OTHER, SELFPAY | PROVIDERS: PCP Nurse Practitioner Family; Visit Provider Nurse Practitioner Psychiatric/Mental Health | DX: Z03.89 Encounter for observation for other suspected diseases and conditions ruled out (principal); Z79.899 Other long term (current) drug therapy; F12.90 Cannabis use, unspecified, uncomplicated | CPT/HCPCS: 80053; 80061; 80307; 81025; 83036; 84439; 84443; 85025 ==

== ENCOUNTER 2023-03-17 12:02 | Emergency (ER) | payer MEDICAID, SELFPAY ==
[2023-03-17 12:06] VITALS: BP 134/88; PULSE 83; RESP 20; O2SAT 95
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
[2023-03-17] MEDS: LORazepam 1 mg Tablet PO (12:32)
== END 2023-03-17 14:31 | disposition home or self-care (01) ==
PROVIDERS: Emergency Provider Emergency Medicine; PCP Nurse Practitioner Family
DX: F41.9 Anxiety disorder, unspecified (principal); F17.210 Nicotine dependence, cigarettes, uncomplicated; Z86.19 Personal history of other infectious and parasitic diseases; E78.5 Hyperlipidemia, unspecified
CPT/HCPCS: 99283

== ENCOUNTER 2023-04-12 15:02 | Inpatient (IN) | payer MEDICAID, SELFPAY ==
[2023-04-12 15:04] VITALS: BP 150/83; PULSE 100; RESP 18; TEMP 36.8; O2SAT 96; BMI 40.6
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
[2023-04-12 15:23] LABS: HCG Qualitative Urine. Negative (Negative)
[2023-04-12 15:32] VITALS: BP 150/83; PULSE 100; RESP 18; O2SAT 96
[2023-04-12 15:36] LABS: Basophils # 0.1 10^3/uL (0.0-0.1); Basophils % 0.5 %; Eosinophils # 0.2 10^3/uL (0.0-0.8); Eosinophils % 1.2 %; Hematocrit 46.9 % (37.0-47.0); Hemoglobin 15.5 g/dL (11.5-15.3); Lymphocytes # 2.9 10^3/uL (0.8-4.8); Lymphocytes % 17.6 %; Mean Corpuscular Hemoglobin 28.1 pg (28.0-34.0); Mean Corpuscular Volume 85.1 fl (81-99); Mean Platelet Volume 8.7 fL (7.4-10.4); Monocytes # 1.4 10^3/uL (0.2-0.9); Monocytes % 8.3 %; Neutrophils # 11.83 10^3/uL (1.8-7.7); Neutrophils % 71.9 %; Nucleated Red Blood Cells % 0 %; Platelet Count 386 10^3/cmm (130-400); Red Blood Count 5.51 10^6/uL (4.1-5.3); Red Cell Distribution Width 14.7 % (12.1-15.1); White Blood Count 16.5 10^3/uL (4.0-10.0)
[2023-04-12 16:04] LABS: Amphetamines Screen Urine Negative (Negative); Barbiturates Screen Urine Negative (Negative); Benzodiazepines Screen Urine Negative (Negative); Cocaine Screen Urine Negative (Negative); Opiate Screen Urine Negative (Negative); PCP Screen Urine Negative (Negative); THC Screen Urine Positive (Negative)
[2023-04-12 16:05] VITALS: PULSE 101; RESP 20; O2SAT 95
[2023-04-12 16:07] LABS: Alanine Aminotransferase 19 U/L (0-33); Albumin Level 4.5 g/dL (3.5-5.2); Alcohol Level 92 mg/dL (0-10); Alkaline Phosphatase 112 U/L (35-105); Anion Gap 15.5 (5-19); Aspartate Amino Transferase 14 U/L (0-32); Blood Urea Nitrogen 10 mg/dL (6-20); Carbon Dioxide 20 mmol/L (22-29); Chloride 106 mmol/L (98-107); Creatinine Clr Calc Pharmacy 105.8752; Globulin 3.3 g/dL (1.3-4.6); Glomerular Filtration Rate 80.3 mL/min (90-130); Glucose 90 mg/dL (65-115); Osmolality Calculated 285 mOsm/kg (285-295); Potassium 3.5 mmol/L (3.5-5.1); Sodium 138 mmol/L (136-145); Total Bilirubin 0.3 mg/dL (0.15-1.2); Total Protein 7.8 g/dL (6.6-8.7)
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
[2023-04-12 16:11] LABS: Acetaminophen < 5.0 ug/mL (10-30); Salicylate < 0.3 mg/dL (3-10)
[2023-04-12] MEDS: haloperidol inj 5 mg/mL INJ 1 mL IM (16:31)
[2023-04-12] MEDS: LORazepam 2 mg/mL INJ 1 mL 1 MG IM (16:31)
[2023-04-12 17:06] VITALS: PULSE 101; RESP 20; O2SAT 97
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
[2023-04-12 19:20] VITALS: BP 128/83; PULSE 89; RESP 18; TEMP 36.6; O2SAT 96
[2023-04-12 20:29] LABS: Glucose Point of Care 107 mg/dL (70-110)
[2023-04-12 20:50] VITALS: BP 128/83; PULSE 89; RESP 18; TEMP 36.6; O2SAT 96
--- NOTE | 2023-04-13 01:08 | PC.NURSE ---
Pt arrived to [facility] @ approximately 191 on 04/12 w/RN and security at side. Pt presents desheveled, anxious, agitated, tearful. With one on one redirection provided, pt became cooperative and assessment completed.
[2023-04-13 06:00] VITALS: BP 108/72; PULSE 73; RESP 16; TEMP 36.8; O2SAT 97
--- NOTE | 2023-04-13 06:24 | W.PM.NPUH&PS ---
Providers/Chief Complaint Admitting Physician: Kailash Coleman MD Primary Care Provider: GIULIA Lorenzana Chief Complaint: SI/ ETOH HPI NPU History of Present Illness Leonor Hagan is a 38 year old female who presented to the emergency department with the following report: Chief Complaint: Psychiatric Symptoms Stated Complaint: SI/ ETOH Time Seen by Provider: 04/12/23 15:03 Source: patient and EMS Mode of arrival: EMS Limitations: no limitations History of Present Illness: 30-year-old female is here with EMS for suicidal ideation. States she has a long history depression try to get into her counselor today was not able to and became suicidal she states she did drink 2 beers and smokes marijuana and had a plan of getting a fillet knife and cutting her wrist. She denies any worsening improving factors. Associated symptoms: Reports depression and suicidal ideation She was admitted to the neuropsychiatric unit for definitive treatment of those issues. She was given ketamine in the emergency department which did not seem to assist her in calming down. She presents today reporting that she is doing okay. She reports that she has been doing better overall but that yesterday was a bad day. She endorses she had been drinking which was consistent with her blood alcohol level being 92. Additionally her UDS was positive for cannabis. Reports that about 10 years ago her family kicked her out. And then they recently let her back in just in time for her mother to 30 days after that. She reports that was about a year ago. She reports that since then her family has been the centerpiece of her stress. She reports that they have continued to pick on her she reports that yesterday she had just had enough. They continued to harass her to a point that was overwhelming. Right before she came here she reports she went to the parking lot and drank some alcohol which is where the blood alcohol level came from and that she came over here because she felt like if she did not get away from them she was going to do something she regretted. She reports that she has been taking her medication in general and that is just been too much with them. We discussed the risk benefits and alternatives of increasing her Wellbutrin XL and she understood and agreed to proceed as is documented in this note. An excerpt of her last inpatient stay from 2019 is included below for context as she denies significant changes since then. She reported understanding that she is on a 96-hour hold.. Per her 02/24/2020 [facility] inpatient psychiatric discharge summary: Discharge Diagnosis (1) Suicidal ideation: Status: Resolved Problem details: resolved (2) Anxiety: Status: Chronic Problem details: chronic (3) Depression: Status: Chronic (4) Cannabis abuse: Status: Chronic (5) Methamphetamine abuse: Status: Resolved Reason for Visit Reason for Visit: Reason For Visit: SI, 96 HR HOLD Brief History: Leonor Hagan is a 35 year old female who presents today reporting that she is extremely depressed. She endorsed that her brought her to the hospital secondary to her really struggling with her addiction as well as her mental health. She endorses that she has not been taking her medication. That has been the case for some time. We discussed the risks benefits and alternatives of initiating medication and she understood and agreed to proceed with a trial of Prozac. Additionally she started really focusing on when she would leave and we agreed that the most important thing was to focus on her getting well and regaining her sobriety and not so much when she leaves. We reviewed the information from her previous evaluation in January 2017 as she reports that not much is changed. Excerpts of that can be seen below. Of note her UDS was positive for cannabis and methamphetamine. [place] [facility] [place] History of Present Illness Date of Service: Feb 02, 2017 Chief Complaint: Patient admitted due to reports of suicidal thoughts HPI: Leonor is a long-standing history of a mood disorder. She also has a history of substance abuse. Her drug of choice is methamphetamine. Please note that she is been in remission for at least 2 years at this point. Patient states that she is been experiencing progressive decline in mood that is culminated having some suicidal thoughts. Ultimately, patient presented to the emergency room where psychiatric hospitalization was pursued. Patient's symptom profile was consistent with a major depressive disorder recurrent and severe. Patient reports numerous symptoms of depression including depressed mood, fatigability, anhedonia, crying spells, a sense of hopelessness, disproportionate guilt and suicidal thoughts. Patient has been on numerous medications in the past. As we discussed numerous treatment options we agreed agreed upon a combination of Wellbutrin and quetiapine. Please note patient does have diabetes and blood sugars are elevated. I recommended that she trial some metformin. Potential risks and benefits are discussed and she agrees to that. Allergies: Coded Allergies: No Known Allergies (Verified , 11/20/05) Active Meds: Hospital Course Hospital Course Patient was admitted to the adult psychiatric unit and entered into the full array of individual and group therapies as part of the protocol. She received 24 hour access to trained nursing care. She was assessed by psychiatrist who initiated a combination of Wellbutrin and Cymbalta. She was able to repeat information provided to her regarding potential benefits and side effects of these medications. Though she only had 2 days of the medication, she also acknowledged that the contingency plan for intolerable side effects or signs of madisyn was to discontinue one of the medications. She stated she would likely discontinue the Wellbutrin as she had taken Cymbalta in the past with significant benefit. Meds NPU Home Medications Medication Instructions Recorded Confirmed Last Taken Type epinephrine 0.3 mg/0.3 mL 0.3 mg IM Q10M PRN Allergic 11/26/19 04/12/23 Unknown History injection, auto-injector (EpiPen Reaction 2-Duong) levonorgestrel 21 mcg/24 hours (8 See Rx Instructions .Route .COMPLEX 11/26/19 04/12/23 12/16/19 11:15 History yrs) 52 mg intrauterine device (Mirena) lorazepam 1 mg tablet (Ativan) 1 mg PO BID PRN anxiety #10 tabs 03/17/23 04/12/23 Unknown Rx bupropion HCl 150 mg 24 hr tablet, 150 mg PO QAM #30 tabs 03/23/23 04/12/23 Unknown Rx extended release hydroxyzine pamoate 50 mg capsule 50 mg PO BID PRN anxiety #60 caps 03/23/23 04/12/23 Unknown Rx prazosin 2 mg capsule 4 mg PO BEDTIME #60 caps 03/23/23 04/12/23 Unknown Rx sertraline 100 mg tablet 200 mg PO DAILY #60 tabs 03/23/23 04/12/23 Unknown Rx topiramate 50 mg tablet 50 mg PO BID #60 tabs 03/23/23 04/12/23 Unknown Rx Allergies Allergy/AdvReac Type Severity Reaction Status Date / Time duloxetine [From Cymbalta] Allergy ADR-Agitate Verified 04/12/23 15:09 d metformin AdvReac ADR-Diarrhe Verified 06/28/23 15:09 a [facility] NPU PFSH: Medical History Allergic reaction to bee sting Anxiety, generalized Bipolar disorder Carpal tunnel syndrome, bilateral GERD (gastroesophageal reflux disease) History of cannabis abuse History of hepatitis C History of methamphetamine use Hyperlipemia Insomnia Following information retrieved/edited from Behavior Assessment Report completed on 12/27/21:She reports taking Celexa, Topamax, Doxepin, Lunesta, and Prazosin as directed by her primary care physician. She reports that despite taking the medication she continues to have symptoms and has started to have blow outs at work, it's getting bad. Leonor reports a history of Trazodone, but said that it was making her nightmares worse. Current Psychiatric and Physical Symptoms: Leonor reports experiencing the following symptoms: cry easily, sweating palms, fatigue, bad dreams, difficulty concentrating, thoughts hard to dismiss, trouble sleeping, night terrors, easily annoyed/irritable, nervous feeling, excessive worries/fears, change in personality, work difficulties, thoughts of harming yourself, history of suicidal thoughts, has attempted to end her life, and diarrhea/constipation. IUD contraception Major depressive disorder, recurrent severe without psychotic features Obesity (BMI 30.0-34.9) PCOS (polycystic ovarian syndrome) Post traumatic stress disorder (PTSD) Primary herpes simplex infection of lips Psychiatric care Seasonal and perennial allergic rhinitis Vitamin B 12 deficiency Vitamin D deficiency Surgical History History of carpal tunnel surgery (~12/16/19) Right [place], [place] [facility] [place] Family History Father Heart attack Social History Smoking and tobacco status: current every day smoker Second hand smoke exposure: No Smoking risk assessment/counseling performed?: Yes Alcohol intake: current Desire information about alcohol rehabilitation?: No Counseling given: No Substance/Drug Use: former Desire information about substance/drug rehabilitation?: No Counseling given: No Adopted: No Caregiver/support person: No Lives independently: Yes Household members: spouse Housing: House Marital status: service: No Current occupational status: employed 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 No abnormal movements except for significant psychomotor retardation. Semicooperative with exam. In mild to moderate distress. Speech was limited and decreased rate and volume. Mood described as depressed, affect congruent. Thought process organized. Thought content: Patient denied any suicidal or homicidal ideation, there were no delusions reported or noted, she denies auditory or visual hallucinations and does not appear to be attending to internal stimuli. Attention and concentration are limited and memory is unreliable but none were formally tested. She is alert and oriented to person and place. Insight and judgment are limited. Impulse control is impaired. Vitals/I&O/Wt Last Vital Signs Temp 98.2 F 04/13/23 06:00 Pulse 73 04/13/23 06:00 Resp 16 04/13/23 06:00 BP 108/72 04/13/23 06:00 Pulse Ox 97 04/13/23 06:00 O2 Del Method Room Air 04/13/23 06:00 Weight last 48 hrs Weight 100.698 kg Data NPU 04/12/23 15:20 04/12/23 15:20 A&P Assessment and plan (1) Suicidal ideation: (2) Family circumstance: (3) Sibling relational problem: (4) Post traumatic stress disorder (PTSD): (5) Major depressive disorder, recurrent severe without psychotic features: (6) Anxiety, generalized: Plan This is a 38-year-old white female with a long history of mental health and addiction challenges who presented to the ED with significant irritability leading to getting ketamine and other medications to assist her and calming down admitted on a 96-hour hold. 1. Continue current medication. We will explore what medications she has been taking and restart those that were helpful. 2. Continue every 15 minute checks for safety. 3. Encourage individual, group and milieu therapy. 4. Encourage sober living treatment after discharge at the highest level of care to which she is willing to commit. Involuntary Hold Information 96 Hour Hold: 96 Hour Involuntary Admission: Yes 96 Hour Hold Ending Date: 04/19/23 96 Hour Hold Ending Time: 15:30 Attestations NPU Medical Necessity Statement*: Inpatient hospitalization is medically necessary and the clinically appropriate intervention at this time. We will continue to offer medications and make changes as indicated. She will be in the hospital for over 2 midnights. Likely length of stay 3-5 days. Coding Level of Care Code Acute Code for Chg Fwd Diagnoses Suicidal ideation R45.851 Family circumstance Z63.9 Sibling relational problem Z63.8 Post traumatic stress disorder (PTSD) F43.10 Major depressive disorder, recurrent severe without psychotic features F33.2 Anxiety, generalized F41.1
[2023-04-13] MEDS: sertraline 100 mg Tablet 200 MG PO (09:30)
[2023-04-13] MEDS: topiramate 25 mg Tablet 50 MG PO ×2 (09:30→17:57)
[2023-04-13] MEDS: buPROPion XL (24 HR) 150 mg Tablet PO (09:30)
[2023-04-13] MEDS: nicotine 4 mg lozenge MUCOUS MEM ×2 (12:39→17:57)
[2023-04-13 14:00] VITALS: BP 107/67; PULSE 63; RESP 16; TEMP 36.6; O2SAT 97
[2023-04-13] MEDS: prazosin 1 mg Capsule 4 MG PO (20:07)
[2023-04-13] MEDS: hyDROXYzine 25 mg Capsule 50 MG PO (20:07)
[2023-04-13] MEDS: haloperidol 5 mg Tablet PO (20:26)
[2023-04-13] MEDS: OLANZapine 5 mg ODT PO (20:26)
[2023-04-13 21:59] VITALS: BP 131/87; PULSE 73; RESP 17; TEMP 36.4; O2SAT 97
[2023-04-14 06:00] VITALS: BP 114/73; PULSE 65; RESP 16; TEMP 36.6; O2SAT 96
[2023-04-14] MEDS: topiramate 25 mg Tablet 50 MG PO ×2 (09:51→18:28)
[2023-04-14] MEDS: buPROPion XL (24 HR) 150 mg Tablet PO (09:51)
[2023-04-14] MEDS: sertraline 100 mg Tablet 200 MG PO (09:52)
[2023-04-14] MEDS: nicotine 4 mg lozenge MUCOUS MEM ×3 (10:00→16:03)
--- NOTE | 2023-04-14 13:08 | W.PM.NPUPNS ---
Subjective NPU Subjective: Patient today reporting that things are a little better. Some frustration about her family success and she reported doing okay with medications being restarted. We talked about possibly increasing the Wellbutrin XL but she is unsure whether it has been helpful at all. We discussed Angel returning tomorrow and that he can weigh on that then. Mental Status Exam MSE Comments: This is an obese versus morbidly obese white female in hospital scrubs with poor grooming and adequate eye contact. No abnormal movements except for resolving psychomotor retardation. More cooperative with exam. In mild to moderate distress. Speech was limited and decreased rate and volume. Mood described as better, I cannot let my family get to me, affect congruent. Thought process organized. Thought content: Patient denied any suicidal or homicidal ideation, there were no delusions reported or noted, she denies auditory or visual hallucinations and does not appear to be attending to internal stimuli. Attention and concentration are limited and memory is unreliable but none were formally tested. She is alert and oriented to person and place. Insight and judgment are limited. Impulse control is impaired. Vitals/I&O/Wt Last Vital Signs Temp 97.9 F 04/14/23 06:00 Pulse 65 04/14/23 06:00 Resp 16 04/14/23 06:00 BP 114/73 04/14/23 06:00 Pulse Ox 96 04/14/23 06:00 O2 Del Method Room Air 04/14/23 06:00 Weight last 48 hrs Weight 100.698 kg Data NPU 04/12/23 15:20 04/12/23 15:20 A&P Assessment and plan (1) Suicidal ideation: (2) Family circumstance: (3) Sibling relational problem: (4) Post traumatic stress disorder (PTSD): (5) Major depressive disorder, recurrent severe without psychotic features: (6) Anxiety, generalized: Plan This is a 38-year-old white female with a long history of mental health and addiction challenges who presented to the ED with significant irritability leading to getting ketamine and other medications to assist her and calming down admitted on a 96-hour hold. 1. Continue current medication. We will explore what medications she has been taking and restarted those that were helpful. 2. Continue every 15 minute checks for safety. 3. Encourage individual, group and milieu therapy. 4. Encourage sober living treatment after discharge at the highest level of care to which she is willing to commit. Involuntary Hold Information 96 Hour Hold: 96 Hour Involuntary Admission: Yes 96 Hour Hold Ending Date: 04/19/23 96 Hour Hold Ending Time: 15:30 Attestations NPU Medical Necessity Statement*: Inpatient hospitalization is medically necessary and the clinically appropriate intervention at this time. We will continue to offer medications and make changes as indicated. Likely length of stay 3-5 days. Coding Level of Care Code Acute Code for Chg Fwd Diagnoses Suicidal ideation R45.851 Family circumstance Z63.9 Sibling relational problem Z63.8 Post traumatic stress disorder (PTSD) F43.10 Major depressive disorder, recurrent severe without psychotic features F33.2 Anxiety, generalized F41.1
[2023-04-14 14:00] VITALS: BP 112/74; PULSE 67; RESP 16; TEMP 36.8; O2SAT 97
[2023-04-14] MEDS: hyDROXYzine 25 mg Capsule 50 MG PO (19:36)
[2023-04-14] MEDS: prazosin 1 mg Capsule 4 MG PO (20:48)
[2023-04-14 22:00] VITALS: BP 151/77; PULSE 91; RESP 18; TEMP 36.9; O2SAT 97
[2023-04-15 06:00] VITALS: BP 128/84; PULSE 65; RESP 16; O2SAT 90
[2023-04-15] MEDS: nicotine 4 mg lozenge MUCOUS MEM ×4 (08:04→17:52)
[2023-04-15] MEDS: hyDROXYzine 25 mg Capsule 50 MG PO (08:31)
[2023-04-15] MEDS: sertraline 100 mg Tablet 200 MG PO (08:31)
[2023-04-15] MEDS: topiramate 25 mg Tablet 50 MG PO ×2 (08:31→17:52)
[2023-04-15] MEDS: buPROPion XL (24 HR) 150 mg Tablet PO (08:31)
[2023-04-15] MEDS: OLANZapine 5 mg ODT PO (11:52)
--- NOTE | 2023-04-15 12:13 | PC.NURSE ---
Patient becoming irritable. States she feels like she is going to punch the wall because, it just looks like a target right now. I don't know why. Patient was administered zyprexa 5mg ODT. Patient came up a few minutes later and asked for a stress ball, which the unit does not have. She was offered a pen and paper to write, books to read, or fidget poppers to use but she angrily said it would not work and walked away.
--- NOTE | 2023-04-15 16:58 | W.PM.NPUPNS ---
Subjective NPU Subjective: Patient is a 38-year-old white female with a history of depression and PTSD admitted with increased agitation. She continued to endorse not wanting to see anyone in the face as she states that having eye contact with people triggers her PTSD symptoms. She continues to endorse nightmares nearly every night. She reported having frequent flashbacks and reports that therapy has been triggering her to have more PTSD related depression and anxiety. She continued to isolate herself on the milieu. She had reported sadness and reported continued feelings of hopelessness. She reported that she did feel safe in her outpatient environment and would like to proceed with outpatient therapy when she was more stable. She had continued to report struggles with managing her past and states that she remains suspicious and distrustful of others in general. She had reported no side effects currently to her medications. Mental Status Exam MSE Comments: This is an obese versus morbidly obese white female in hospital scrubs with poor grooming and adequate eye contact. No abnormal movements except for significant psychomotor retardation. She was cooperative on interview and inmoderate distress as she repeatedly had attempted to cover her eyes.. Speech was limited and decreased rate and volume. Mood described as depressed, Her affect was mood congruent. Thought process organized. Thought content: Patient denied any suicidal or homicidal ideation, there were no delusions reported or noted, she denies auditory or visual hallucinations and did not appear to be attending to be responding to internal stimuli. Attention and concentration are limited and memory is unreliable but none were formally tested. She is alert and oriented to person and place. Insight and judgment are limited. Impulse control is impaired. Vitals/I&O/Wt Last Vital Signs Temp 98.4 F 04/14/23 22:00 Pulse 65 04/15/23 06:00 Resp 16 04/15/23 06:00 BP 128/84 04/15/23 06:00 Pulse Ox 90 04/15/23 06:00 O2 Del Method Room Air 04/15/23 06:00 Data NPU 04/12/23 15:20 04/12/23 15:20 A&P Assessment and plan (1) Suicidal ideation: (2) Family circumstance: (3) Sibling relational problem: (4) Post traumatic stress disorder (PTSD): (5) Major depressive disorder, recurrent severe without psychotic features: (6) Anxiety, generalized: Plan This is a 38-year-old white female with a long history of mental health and addiction challenges who presented to the ED with significant irritability leading to getting ketamine and other medications to assist her and calming down admitted on a 96-hour hold. 1. Continue current medications with increase in prazosin to 6mg at night to target PTSD related nightmares. Add Seroquel 50mg at night and discontinue Wellbutrin xl due to lack of efficacy. 2. Continue every 15 minute checks for safety. 3. Encourage individual, group and milieu therapy. 4. Encourage sober living treatment after discharge at the highest level of care to which she is willing to commit. Involuntary Hold Information 96 Hour Hold: 96 Hour Involuntary Admission: Yes 96 Hour Hold Ending Date: 04/19/23 96 Hour Hold Ending Time: 15:30 Attestations NPU Medical Necessity Statement*: Inpatient hospitalization is medically necessary and the clinically appropriate intervention at this time. We will continue to offer medications and make changes as indicated. Her likely length of stay is 3-5 days. Coding Level of Care Code Acute Code for [facility] Fwd Diagnoses Suicidal ideation R45.851 Family circumstance Z63.9 Sibling relational problem Z63.8 Post traumatic stress disorder (PTSD) F43.10 Major depressive disorder, recurrent severe without psychotic features F33.2 Anxiety, generalized F41.1
[2023-04-15 19:50] VITALS: BP 117/76; PULSE 78; RESP 18; TEMP 36.6; O2SAT 97
[2023-04-15] MEDS: prazosin 5 mg Capsule PO (20:16)
[2023-04-15] MEDS: quetiapine XR (24HR) 50 mg Tablet PO (20:16)
[2023-04-15] MEDS: prazosin 1 mg Capsule PO (20:16)
[2023-04-16 06:00] VITALS: BP 126/83; PULSE 102; RESP 18; O2SAT 98; BMI 41.5
[2023-04-16] MEDS: nicotine 4 mg lozenge MUCOUS MEM ×8 (06:14→22:01)
[2023-04-16] MEDS: sertraline 100 mg Tablet 200 MG PO (08:11)
[2023-04-16] MEDS: topiramate 25 mg Tablet 50 MG PO (08:11)
[2023-04-16 13:26] VITALS: BP 135/89; PULSE 90; RESP 17; TEMP 36.8; O2SAT 97
[2023-04-16] MEDS: calcium carbonate 500 mg Chew Tablet 1000 MG PO (14:15)
--- NOTE | 2023-04-16 15:55 | W.PM.NPUPNS ---
Subjective NPU Subjective: Patient is a 38-year-old white female with a history of depression and PTSD admitted with increased agitation. Patient continued to report PTSD related symptoms stating that she frequently gets agitated and loses control when her PTSD is triggered at home. She had reported that she needed more help with managing her mood. She reported no side effects from her Seroquel and reported continued difficulties with falling asleep. She had reported infrequent thoughts of suicide but stated that she had been motivated to get better for her children. She had continued to endorse having frequent shifts in her mood. She had endorsed a history of hypomanic symptoms with decreased need for sleep and racing thoughts. She had reported having chronic difficulties with being trustful of others and always reported feeling unsafe or uncomfortable when around settings with many people. She had reported frequent sleep continuity disruption. Vitals/I&O/Wt Last Vital Signs Temp 98.2 F 04/16/23 13:26 Pulse 90 04/16/23 13:26 Resp 17 04/16/23 13:26 BP 135/89 04/16/23 13:26 Pulse Ox 97 04/16/23 13:26 O2 Del Method Room Air 04/16/23 13:26 Weight last 48 hrs Weight 103.136 kg Data NPU 04/12/23 15:20 04/12/23 15:20 A&P Assessment and plan (1) Suicidal ideation: (2) Family circumstance: (3) Sibling relational problem: (4) Post traumatic stress disorder (PTSD): (5) Major depressive disorder, recurrent severe without psychotic features: (6) Anxiety, generalized: Plan This is a 38-year-old white female with a long history of mental health and addiction challenges who presented to the ED with significant irritability leading to getting ketamine and other medications to assist her and calming down admitted on a 96-hour hold. 1. Continue current medications --continue prazosin 6mg at night to target PTSD related nightmares. Increase Seroquel XR to 100mg at night, continue Zoloft 200mg daily 2. Continue every 15 minute checks for safety. 3. Encourage individual, group and milieu therapy. 4. Encourage sober living treatment after discharge at the highest level of care to which she is willing to commit. Involuntary Hold Information 96 Hour Hold: 96 Hour Involuntary Admission: Yes 96 Hour Hold Ending Date: 04/19/23 96 Hour Hold Ending Time: 15:30 Attestations NPU Medical Necessity Statement*: Inpatient hospitalization is medically necessary and the clinically appropriate intervention at this time. We will continue to offer medications and make changes as indicated. Her likely length of stay is 3-5 days. Coding Level of Care Code Acute Code for Chg Fwd Diagnoses Suicidal ideation R45.851 Family circumstance Z63.9 Sibling relational problem Z63.8 Post traumatic stress disorder (PTSD) F43.10 Major depressive disorder, recurrent severe without psychotic features F33.2 Anxiety, generalized F41.1
[2023-04-16] MEDS: acetaminophen 325 mg Tablet 650 MG PO (18:22)
[2023-04-16] MEDS: quetiapine XR (24HR) 50 mg Tablet 100 MG PO (20:03)
[2023-04-16] MEDS: prazosin 5 mg Capsule PO (20:03)
[2023-04-16] MEDS: prazosin 1 mg Capsule PO (20:03)
[2023-04-16 20:39] VITALS: BP 127/81; PULSE 75; RESP 18; TEMP 36.9; O2SAT 98
[2023-04-16] MEDS: hyDROXYzine 25 mg Capsule 50 MG PO (21:57)
[2023-04-17 06:00] VITALS: BP 123/82; PULSE 86; RESP 18; O2SAT 97
[2023-04-17] MEDS: nicotine 4 mg lozenge MUCOUS MEM ×4 (06:05→13:28)
[2023-04-17] MEDS: sertraline 100 mg Tablet 200 MG PO (07:50)
--- NOTE | 2023-04-17 13:47 | P.NPUDS_ITS ---
Diagnoses at Discharge Discharge Diagnosis (1) Suicidal ideation: Status: Acute (2) Family circumstance: Status: Acute (3) Sibling relational problem: Status: Acute (4) Post traumatic stress disorder (PTSD): Status: Chronic (5) Major depressive disorder, recurrent severe without psychotic features: Status: Chronic (6) Anxiety, generalized: Status: Chronic Reason for Visit Reason for Visit: SI/ ETOH Brief History: History of Present Illness Leonor Hagan is a 38 year old female who presented to the emergency department with the following report: Chief Complaint: Psychiatric Symptoms Stated Complaint: SI/ ETOH Time Seen by Provider: 04/12/23 15:03 Source: patient and EMS Mode of arrival: EMS Limitations: no limitations History of Present Illness:?? 30-year-old female is here with EMS for suicidal ideation.? States she has a long history depression try to get into her counselor today was not able to and became suicidal she states she did drink 2 beers and smokes marijuana and had a plan of getting a fillet knife and cutting her wrist.? She denies any worsening improving factors. ? Associated symptoms: Reports depression and suicidal ideation She was admitted to the neuropsychiatric unit for definitive treatment of those issues.? She was given ketamine in the emergency department which did not seem to assist her in calming down.? She presents today reporting that she is doing okay.? She reports that she has been doing better overall but that yesterday was a bad day.? She endorses she had been drinking which was consistent with her blood alcohol level being 92.? Additionally her UDS was positive for cannabis.? Reports that about 10 years ago her family kicked her out. ? And then they recently let her back in just in time for her mother to 30 days after that.? She reports that was about a year ago.? She reports that since then her family has been the centerpiece of her stress.? She reports that they have continued to pick on her she reports that yesterday she had just had enough.? They continued to harass her to a point that was overwhelming.? Right before she came here she reports she went to the parking lot and drank some alcohol which is where the blood alcohol level came from and that she came over here because she felt like if she did not get away from them she was going to do something she regretted.? She reports that she has been taking her medication in general and that is just been too much with them.? We discussed the risk benefits and alternatives of increasing her Wellbutrin XL and she understood and agreed to proceed as is documented in this note.? An excerpt of her last inpatient stay from 2019 is included below for context as she denies significant changes since then.? She reported understanding that she is on a 96-hour hold.. Per her 02/24/2020 [facility] inpatient psychiatric discharge summary: Discharge Diagnosis (1) Suicidal ideation: ? ? ? Status: Resolved ? ? ? Problem details: resolved (2) Anxiety: ? ? ? Status: Chronic ? ? ? Problem details: chronic (3) Depression: ? ? ? Status: Chronic (4) Cannabis abuse: ? ? ? Status: Chronic (5) Methamphetamine abuse: ? ? ? Status: Resolved Reason for Visit Reason for Visit:?? Reason For Visit: SI, 96 HR HOLD? Brief History: Leonor Hagan is a 35 year old female who presents today reporting that she is extremely depressed.? She endorsed that her brought her to the hospital secondary to her really struggling with her addiction as well as her mental health.? She endorses that she has not been taking her medication.? That has been the case for some time.? We discussed the risks benefits and alternatives of initiating medication and she understood and agreed to proceed with a trial of Prozac.? Additionally she started really focusing on when she would leave and we agreed that the most important thing was to focus on her getting well and regaining her sobriety and not so much when she leaves.? We reviewed the information from her previous evaluation in January 2017 as she reports that not much is changed.? Excerpts of that can be seen below.? Of note her UDS was positive for cannabis and methamphetamine. Per last [facility] IP eval: History of Present Illness Date of Service: Feb 02, 2017 Chief Complaint: Patient admitted due to reports of suicidal thoughts HPI: Leonor is a long-standing history of a mood disorder.? She also has a history of substance abuse.? Her drug of choice is methamphetamine.? Please note that she is been in remission for at least 2 years at this point. Patient states that she is been experiencing progressive decline in mood that is culminated having some suicidal thoughts.? Ultimately, patient presented to the emergency room where psychiatric hospitalization was pursued.? Patient's symptom profile was consistent with a major depressive disorder recurrent and severe.? Patient reports numerous symptoms of depression including depressed mood, fatigability, anhedonia, crying spells, a sense of hopelessness, disproportionate guilt and suicidal thoughts.? Patient has been on numerous medications in the past.? As we discussed numerous treatment options we agreed agreed upon a combination of Wellbutrin and quetiapine.? Please note patient does have diabetes and blood sugars are elevated.? I recommended that she trial some metformin.? Potential risks and benefits are discussed and she agrees to that. Allergies: Coded Allergies: ?? ? No Known Allergies (Verified , 11/20/05) Active Meds: Hospital Course Hospital Course Patient was admitted to the adult psychiatric unit and entered into the full array of individual and group therapies as part of the protocol.? She received 24 hour access to trained nursing care.? She was assessed by psychiatrist who initiated a combination of Wellbutrin and Cymbalta.? She was able to repeat information provided to her regarding potential benefits and side effects of these medications.? Though she only had 2 days of the medication, she also acknowledged that the contingency plan for intolerable side effects or signs of madisyn was to discontinue one of the medications.? She stated she would likely discontinue the Wellbutrin as she had taken Cymbalta in the past with significant benefit. Hospital Course Hospital Course During the hospitalization, patient had routine laboratory studies which were within normal limits except for few outliers.? Additionally there was a general medical evaluation which was also within normal limits and revealed no new acute processes. At the time of discharge, lethality was denied and psychosis was resolving.? Mood and anxiety were well managed.? Patient endorsed a plan to avoid all drugs of abuse and follow-up with the aftercare recommendations of the treatment team.? Patient was evaluated and deemed to be absent credible lethality, and had achieved the maximum benefit from an inpatient hospitalization, so was discharged. The patient's medications were changed as Wellbutrin was discontinued and Seroquel Exar was initiated to help with some PTSD related symptoms with improvement in sleep noted. Prazosin was also increased up to 6 mg at night without any side effects. Involuntary Hold Information 96 Hour Hold: 96 Hour Involuntary Admission: Yes 96 Hour Hold Ending Date: 04/19/23 96 Hour Hold Ending Time: 15:30 Mental Status Exam MSE Comments: This is an obese versus morbidly obese white female in hospital scrubs with poor grooming and adequate eye contact. No abnormal movements other than mild psychomotor retardation. She was cooperative on interview and in no acute d istress with fleeting eye contact. Speech was normal in regards to rate rhythm and prosody. Mood described as okay., Her affect was brighter today. Thought process organized. Thought content: Patient denied any suicidal or homicidal ideation, there were no delusions reported or noted, she denies auditory or visual hallucinations and did not appear to be attending to be responding to internal stimuli. Attention and concentration are at baseline. Her recent and remote memory appeared grossly intact. She is alert and oriented to person and place time and situation.. Insight was improving and judgment was fair. Impulse control is improved. Discharge Data Studies Completed and Pending: Laboratory Results WBC 16.5 10^3/uL (4.0 -10.0) H 04/12/23 15:20 RBC 5.51 10^6/uL (4.1 -5.3) H 04/12/23 15:20 Hgb 15.5 g/dL (11.5-1 5.3) H 04/12/23 15:20 Hct 46.9 % (37.0-47.0 ) 04/12/23 15:20 MCV 85.1 fl (81-99) 04/12/23 15:20 MCH 28.1 pg (28.0-34. 0) 04/12/23 15:20 MCHC 33.0 g/dL (30.0-3 6.0) 04/12/23 15:20 RDW 14.7 % (12.1-15.1 ) 04/12/23 15:20 Plt Count 386 10^3/cmm (130 -400) 04/12/23 15:20 MPV 8.7 fL (7.4-10.4) 04/12/23 15:20 Neut % (Auto) 71.9 % 04/12/23 15:20 Lymph % (Auto) 17.6 % 04/12/23 15:20 Floyd % (Auto) 8.3 % 04/12/23 15:20 Eos % (Auto) 1.2 % 04/12/23 15:20 Baso % (Auto) 0.5 % 04/12/23 15:20 Neut # (Auto) 11.83 10^3/uL (1. 8-7.7) H 04/12/23 15:20 Lymph # (Auto) 2.9 10^3/uL (0.8- 4.8) 04/12/23 15:20 Floyd # (Auto) 1.4 10^3/uL (0.2- 0.9) H 04/12/23 15:20 Eos # (Auto) 0.2 10^3/uL (0.0- 0.8) 04/12/23 15:20 Baso # (Auto) 0.1 10^3/uL (0.0- 0.1) 04/12/23 15:20 Nucleated RBC % (a uto) 0 % 04/12/23 15:20 Nucleated RBCs # 0.0 /100WBC 04/12/23 15:20 Sodium 138 mmol/L (136-1 45) 04/12/23 15:20 Potassium 3.5 mmol/L (3.5-5 .1) 04/12/23 15:20 Chloride 106 mmol/L (98-10 7) 04/12/23 15:20 Carbon Dioxide 20 mmol/L (22-29) L 04/12/23 15:20 Anion Gap 15.5 (5-19) 04/12/23 15:20 BUN 10 mg/dL (6-20) 04/12/23 15:20 Creatinine 0.8 mg/dL (0.5-0. 9) 04/12/23 15:20 GFR Calculation 80.3 mL/min (90-1 30) L 04/12/23 15:20 Glucose 90 mg/dL (65-115) 04/12/23 15:20 POC Glucose 107 mg/dL (70-110 ) 04/12/23 20:27 Calculated Osmolal ity 285 mOsm/kg (285- 295) 04/12/23 15:20 Calcium 9.0 mg/dL (8.5-10 .5) 04/12/23 15:20 Total Bilirubin 0.3 mg/dL (0.15-1 .2) 04/12/23 15:20 AST 14 U/L (0-32) 04/12/23 15:20 ALT 19 U/L (0-33) 04/12/23 15:20 Alkaline Phosphata se 112 U/L (35-105) H 04/12/23 15:20 Total Protein 7.8 g/dL (6.6-8.7 ) 04/12/23 15:20 Albumin 4.5 g/dL (3.5-5.2 ) 04/12/23 15:20 Globulin 3.3 g/dL (1.3-4.6 ) 04/12/23 15:20 HCG, Qual Negative (Negati ve) 04/12/23 15:18 Salicylates < 0.3 mg/dL (3-10 ) L 04/12/23 15:20 Urine Opiates Scre en Negative ng/mL (N egative) 04/12/23 15:18 Acetaminophen < 5.0 ug/mL (10-3 0) L 04/12/23 15:20 Ur Barbiturates Sc reen Negative ng/mL (N egative) 04/12/23 15:18 Ur Phencyclidine S crn Negative ng/mL (N egative) 04/12/23 15:18 Ur Amphetamines Sc reen Negative ng/mL (N egative) 04/12/23 15:18 U Benzodiazepines Scrn Negative ng/mL (N egative) 04/12/23 15:18 Urine Cocaine Scre en Negative ng/mL (N egative) 04/12/23 15:18 U Marijuana (THC) Screen Positive ng/mL (N egative) H 04/12/23 15:18 Ethyl Alcohol 92 mg/dL (0-10) H 04/12/23 15:20 Vitals: Last Vital Signs Temp 98.5 F 04/16/23 20:39 Pulse 86 04/17/23 06:00 Resp 18 04/17/23 06:00 BP 123/82 04/17/23 06:00 Pulse Ox 97 04/17/23 06:00 O2 Del Method Room Air 04/17/23 06:00 Discharge Plan Discharge Patient Disposition: Home Condition: Stable Prescriptions: New prazosin 1 mg Capsule 1 mg PO BEDTIME 30 Days Qty: 30 1RF prazosin 5 mg Capsule 5 mg PO BEDTIME 30 Days Qty: 30 1RF quetiapine 50 mg Tablet Extended Release 24 Hr 100 mg PO BEDTIME Qty: 60 1RF Continued epinephrine [EpiPen 2-Duong] 0.3 mg/0.3 mL auto-injector 0.3 mg IM Q10M PRN (Reason: Allergic Reaction) Mirena 20 mcg/24 hours (5 yrs) 52 mg intrauterine device See Rx Instructions .ROUTE .COMPLEX Rx Instructions: IMPLANTED hydroxyzine pamoate 50 mg capsule 50 mg PO BID PRN (Reason: anxiety) Qty: 60 1RF sertraline 100 mg tablet 200 mg PO DAILY Qty: 60 1RF lorazepam [Ativan] 1 mg tablet 1 mg PO BID PRN (Reason: anxiety) Qty: 10 0RF Discontinued topiramate 50 mg tablet 50 mg PO BID Qty: 60 1RF Rx Instructions: stop 25 mg dose bupropion HCl 150 mg tablet extended release 24 hr 150 mg PO QAM Qty: 30 1RF Rx Instructions: stop the 300 mg dose prazosin 2 mg capsule 4 mg PO BEDTIME Qty: 60 1RF Discharge Orders: Discharge Order (Routine); Ordered 04/17/23 Ordered By: Tin Ortiz Referrals: Vera Cohn APRN [Nurse Practitioner] - 4-7 days (Follow up will be scheduled on 04/19/23) Chantal Craft FNP-C [Nurse Practitioner] - Discharge Diet: Usual diet Discharge Activity: Resume usual activity Patient Instructions: Opioid Safety Discharge Attestations NPU Time Spent in Discharge Care*: less than 30 min Specific Discharge Activities: Specific discharge activities: educating patient, discussing with case management assistant/social workers/dc planners and documenting/other paperwork Coding Level of Care Code Acute [facility] DC note Diagnoses Suicidal ideation R45.851 Family circumstance Z63.9 Sibling relational problem Z63.8 Post traumatic stress disorder (PTSD) F43.10 Major depressive disorder, recurrent severe without psychotic features F33.2 Anxiety, generalized F41.1
[2023-04-17 14:00] VITALS: BP 137/95; PULSE 91; RESP 17; TEMP 36.8; O2SAT 97
[2023-04-17 14:24] VITALS: BP 123/82; PULSE 86; RESP 18; O2SAT 97
== END 2023-04-17 15:18 | disposition home or self-care (01) | DRG 885 ==
LOC: ER 17:15 → NP 18:42
PROVIDERS: Admitting Provider Psychiatry & Neurology Psychiatry; Emergency Provider Emergency Medicine; PCP Nurse Practitioner; Visit Provider Psychiatry & Neurology Psychiatry
DX: F33.2 Major depressive disorder, recurrent severe without psychotic features (principal); R45.851 Suicidal ideations; F10.129 Alcohol abuse with intoxication, unspecified; Y90.4 Blood alcohol level of 80-99 mg/100 ml; F15.10 Other stimulant abuse, uncomplicated; F12.10 Cannabis abuse, uncomplicated; F41.1 Generalized anxiety disorder; K21.9 Gastro-esophageal reflux disease without esophagitis; Z86.19 Personal history of other infectious and parasitic diseases; F17.200 Nicotine dependence, unspecified, uncomplicated; F43.10 Post-traumatic stress disorder, unspecified; Z63.8 Other specified problems related to primary support group; Z62.820 Parent-biological child conflict
CPT/HCPCS: 36415; 36416; 80053; 80306; 80307; 81025; 82962; 85025; 96372; 97150; 97165; 99238; 99285; J1630; J2060; J3490

== ENCOUNTER → 2023-08-11 11:29 | Outpatient (BNVA) | payer MEDICAID, SELFPAY | PROVIDERS: PCP Nurse Practitioner; Visit Provider Nurse Practitioner Family | DX: E55.9 Vitamin D deficiency, unspecified (principal); E53.8 Deficiency of other specified B group vitamins; E11.9 Type 2 diabetes mellitus without complications; E78.5 Hyperlipidemia, unspecified; F41.1 Generalized anxiety disorder; F31.9 Bipolar disorder, unspecified | CPT/HCPCS: 80053; 80061; 82306; 82607; 83036; 84443; 85025 ==

== ENCOUNTER → 2023-08-30 15:40 | Outpatient (BNVA) | payer MEDICAID, SELFPAY | PROVIDERS: PCP Nurse Practitioner; Visit Provider Nurse Practitioner Women's Health | DX: Z12.4 Encounter for screening for malignant neoplasm of cervix (principal); Z11.3 Encounter for screening for infections with a predominantly sexual mode of transmission | CPT/HCPCS: 86592; 86803; 87340; 87522; 87624; 87806 ==

== ENCOUNTER → 2023-09-22 07:46 | Outpatient (BNVA) | payer MEDICAID, SELFPAY | PROVIDERS: PCP Nurse Practitioner; Visit Provider Nurse Practitioner Women's Health | DX: Z11.3 Encounter for screening for infections with a predominantly sexual mode of transmission (principal) | CPT/HCPCS: 87806 ==

== ENCOUNTER 2023-09-26 10:06 | Emergency (ER) | payer MEDICAID, SELFPAY ==
[2023-09-26 10:17] VITALS: BP 133/99; PULSE 99; TEMP 36.8; O2SAT 94; BMI 40.2
--- NOTE | 2023-09-26 10:17 | ED_ITS ---
HPI - General Adult General: Chief complaint: Recheck/Abnormal Lab/Rx Stated complaint: school wants drug tested Time Seen by Provider: 09/26/23 10:07 Source: patient Mode of arrival: ambulatory Limitations: no limitations History of Present Illness: Patient is a 38-year-old female to ED today stating she was requested to have a drug screen by her daughter's school. She states she received a phone call from the school in regards to suicidal statements that the daughter had made. When she went to flower buncher or picker her daughter she was confronted about their concern for possible drug use. Patient states she has a history of tardive dyskinesia and states that they mistook these movements for possible methamphetamine use. Patient states she does have a history of drug use 8 years ago but has been clean since then. She does report occasional marijuana use. Patient has no physical complaints at this time. Onset (ago): hour(s) Associated symptoms: Reports no associated symptoms; Deny chest pain, dyspnea, nausea, rash, palpitations, syncope or vomiting Treatments prior to arrival: none Review of Systems Const: Denies: fever(s) or chills Eyes: Denies: change in vision or blurry vision Card: Denies: chest pain, palpitations, irregular heart rhythm, lightheadedness, syncope or dyspnea on exertion Resp: Denies: dyspnea, productive cough or pain on inspiration GI: Denies: abdominal pain, nausea, vomiting, heartburn or diarrhea : Denies: dysuria Musc: Denies: neck pain, back pain or joint pain Skin/Breast: Denies: rash PFS ED PFSH: Medical History Diabetes Obesity (BMI 30.0-34.9) Post traumatic stress disorder (PTSD) Psychiatric care Insomnia Following information retrieved/edited from Behavior Assessment Report completed on 12/27/21:She reports taking Celexa, Topamax, Doxepin, Lunesta, and Prazosin as directed by her primary care physician. She reports that despite taking the medication she continues to have symptoms and has started to have blow outs at work, it's getting bad. Leonor reports a history of Trazodone, but said that it was making her nightmares worse. Current Psychiatric and Physical Symptoms: Leonor reports experiencing the following symptoms: cry easily, sweating palms, fatigue, bad dreams, difficulty concentrating, thoughts hard to dismiss, trouble sleeping, night terrors, easily annoyed/irritable, nervous feeling, excessive worries/fears, change in personality, work difficulties, thoughts of harming yourself, his tory of suicidal thoughts, has attempted to end her life, and diarrhea/constipation. History of methamphetamine use Anxiety, generalized Bipolar disorder Major depressive disorder, recurrent severe without psychotic features Allergic reaction to bee sting GERD (gastroesophageal reflux disease) History of hepatitis C treated with Harvoni Hyperlipemia PCOS (polycystic ovarian syndrome) Surgical History History of carpal tunnel surgery (~12/16/19) Right hand, Dr. Joyner at [facility] S/P section (~2008) Performed by Dr. Yeager at [facility] in [place], [place] Family History Father Heart attack Diabetes mellitus, type 2 Family/Other Breast cancer Pat Aunt Liver cancer Maternal Uncle Mother Diabetes mellitus, type 2 Grandmother Diabetes mellitus, type 2 Grandfather Diabetes mellitus, type 2 Social History Smoking and tobacco/nicotine status: current every day tobacco/nicotine user Second hand smoke exposure: No Alcohol intake: current Substance/Drug Use: former Adopted: No Caregiver/support person: No Lives independently: Yes Household members: spouse Housing: House Marital status: service: No Current occupational status: employed 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 Do you think of yourself as: Straight/Heterosexual Current gender identity: Female Physical Exam Const: COMMON NORMALS: no acute distress, patient oriented x3, alert and well nourished NUTRITIONAL APPEARANCE: overweight HENMT: COMMON NORMALS: normocephalic and atraumatic HEAD & SCALP: normocephalic and atraumatic Neck/C-Spine: COMMON NORMALS: full ROM, no lymphadenopathy, supple and no meningeal signs Chest: COMMONS NORMALS: normal inspection of the chest Resp: COMMON NORMALS: normal respiratory effort and clear to auscultation bilaterally AUSCULTATION: clear to auscultation bilaterally Cardio: COMMON NORMALS: regular rate and regular rhythm RATE: regular rate RHYTHM: regular rhythm GI: COMMON NORMALS: Normal to inspection, nondistended, normoactive bowel sounds present, Soft to palpation, non-tender, No hepatosplenomegaly present and no masses PALPATION: Yes Soft to palpation and Yes No hepatosplenomegaly present : COMMON NORMALS: Yes no CVA tenderness BLADDER/KIDNEY EXAM: Yes no CVA tenderness Back/Pelvis: COMMON NORMALS: no CVA tenderness and thoracic and lumbar spine normal to inspection Extremity: COMMON NORMALS: normal to inspection GENERAL: Yes normal exam except as noted Neuro: GAB COMA SCALE: document GCS findings Gab coma scale eye opening: Spontaneous Gab coma scale verbal response: Orientated Gab coma scale motor response: Obey commands Gab coma scale total score: 15 COMMON NORMALS: patient oriented x3 SENSORIUM/ORIENTATION: Yes alert MENINGEAL SIGNS: Yes no meningeal signs Psych: COMMON NORMALS: mental status grossly normal, Normal thought process present and cooperative THOUGHT PROCESS: Normal thought process present Skin: COMMON NORMALS: no rashes or lesions noted GENERAL SKIN EXAM: no rashes or lesions noted Course Vital Signs: Vital signs: Vital Signs Temperature 98.3 F 09/26/23 10:17 Pulse Rate 99 09/26/23 10:17 Blood Pressure 133/99 09/26/23 10:17 Pulse Oximetry 94 09/26/23 10:17 Oxygen Delivery Me thod Room Air 09/26/23 10:17 [facility] - General Adult Medical Decision Making UDS obtained here. Positive for marijuana which patient admits to. She was given these printed results. She is stable for discharge. Medical Records I reviewed the patient's medical records. Lab Data I reviewed the patient's lab results. Laboratory Results Urine Opiates Screen Negative ng/mL (Negative) 09/26/23 10:30 Ur Barbiturates Screen Negative ng/mL (Negative) 09/26/23 10:30 Ur Phencyclidine Scrn Negative ng/mL (Negative) 09/26/23 10:30 Ur Amphetamines Screen Negative ng/mL (Negative) 09/26/23 10:30 U Benzodiazepines Scrn Negative ng/mL (Negative) 09/26/23 10:30 Urine Cocaine Screen Negative ng/mL (Negative) 09/26/23 10:30 U Marijuana (THC) Screen Positive ng/mL (Negative) H 09/26/23 10:30 No radiology studies performed this visit Discharge Plan Discharge Patient Disposition: Home Clinical Impression: Encounter for drug screening Condition: Stable Prescriptions: No Action epinephrine [EpiPen 2-Duong] 0.3 mg/0.3 mL auto-injector 0.3 mg IM Q10M PRN (Reason: Allergic Reaction) Mirena 20 mcg/24 hours (5 yrs) 52 mg intrauterine device See Rx Instructions .ROUTE .COMPLEX Rx Instructions: IMPLANTED buspirone 10 mg tablet 10 mg PO BID Qty: 60 1RF Rx Instructions: For 3 days:Take one-half tablet morning and evening, then increase to one tablet twice a day prazosin 5 mg capsule 5 mg PO BEDTIME 30 Days Qty: 30 1RF (DME) auto titrating CPAP with supplies See Rx Instructions .Route .MEDSUPPLY Qty: 1 0RF Rx Instructions: As directed sertraline 100 mg tablet 200 mg PO QAM quetiapine 50 mg tablet extended release 24 hr 50 mg PO BEDTIME Discharge Orders: Discharge ED (Routine); Ordered 09/26/23 Ordered By: Kavya Mojica Referrals: Linda Lehman FNP-C [Primary Care Provider] - Coding Level of Care Code ED Parachute Line Tier for Rickie Martinez
[2023-09-26 11:04] LABS: Amphetamines Screen Urine Negative (Negative); Barbiturates Screen Urine Negative (Negative); Benzodiazepines Screen Urine Negative (Negative); Cocaine Screen Urine Negative (Negative); Opiate Screen Urine Negative (Negative); PCP Screen Urine Negative (Negative); THC Screen Urine Positive (Negative)
== END 2023-09-26 11:42 | disposition home or self-care (01) ==
PROVIDERS: Emergency Provider Physician Assistant; PCP Nurse Practitioner
DX: Z02.89 Encounter for other administrative examinations (principal); Z72.0 Tobacco use
CPT/HCPCS: 80306; 99283

== ENCOUNTER → 2023-10-27 10:53 | Outpatient (BNVA) | payer MEDICAID, SELFPAY | PROVIDERS: PCP Nurse Practitioner Family; Visit Provider Nurse Practitioner Family | DX: F41.1 Generalized anxiety disorder (principal); E78.5 Hyperlipidemia, unspecified; K21.9 Gastro-esophageal reflux disease without esophagitis; Z79.899 Other long term (current) drug therapy | CPT/HCPCS: 80053; 80061; 81003; 83036; 84443; 85025 ==

== ENCOUNTER 2024-02-27 08:12 | Outpatient (CLI) | payer MEDICAID, SELFPAY ==
--- NOTE | 2024-02-27 08:17 | US_ITS ---
WS: [id number] RIGHT UPPER QUADRANT ULTRASOUND HISTORY: POSTPRANDIAL BLOATING/EPIGASTRIC PAIN COMPARISON: 06/05/2017 Liver: 16.9 cm in length. Normal size liver and echogenicity. No bile duct dilatation or mass. Portal Vein: Normal hepatopetal flow with monophasic waveform. Gallbladder: Abnormal gallbladder. Gallbladder is contracted and stone filled. No adjacent pericholec ystic fluid. Echogenic wall from chronic cholecystitis. CBD: 0.3 cm Pancreas: Normal size and echogenicity. Right kidney: 11.1 cm in length. Normal size and echogenicity. No hydronephrosis or mass. Aorta and IVC: Unremarkable abdominal aorta and IVC. No ascites. US/US abdomen limited [id number] IMPRESSION: 1. Abnormal gallbladder. Contracted gallbladder with stones. Likely chronic ch olecystitis. 2. No bile duct dilatation.
== END 2024-02-27 08:13 | disposition home or self-care (01) ==
LOC: RAD 08:13
PROVIDERS: PCP Nurse Practitioner Family; Visit Provider Internal Medicine
DX: K80.11 Calculus of gallbladder with chronic cholecystitis with obstruction (principal); R10.13 Epigastric pain; R14.0 Abdominal distension (gaseous)
CPT/HCPCS: 76705

== ENCOUNTER 2024-03-18 20:00 | Outpatient (CLI) | payer MEDICAID, SELFPAY | END 2024-03-18 20:01 | disposition home or self-care (01) | LOC: SLEEP 03-19 05:20 | PROVIDERS: PCP Nurse Practitioner Family; Visit Provider Nurse Practitioner Family | DX: G47.33 Obstructive sleep apnea (adult) (pediatric) (principal) | CPT/HCPCS: 95810 ==

== ENCOUNTER 2024-06-02 16:48 | Emergency (ER) | payer MEDICAID, SELFPAY ==
[2024-06-02 16:51] VITALS: BP 147/101; PULSE 87; RESP 22; TEMP 36.9; O2SAT 97; BMI 39.3
--- NOTE | 2024-06-02 17:05 | W.ED.PSYCHS ---
HPI - Psych General: Chief Complaint: Psychiatric Symptoms Stated Complaint: ANXIETY Time Seen by Provider: 06/02/24 16:52 History of Present Illness: 39-year-old female with reported bipolar disease, PTSD, PCOS, major depressive disorder among others who presents emergency department by ambulance. The patient is beside herself and distraught on arrival. She is speaking loudly and rapidly, tearful, making white hand gestures. The patient's tone is going up and down. She reports her brain is malfunctioning . She reports she is tired of it .patient reports she looks to God and asks why she is still here. She does not want to be here anymore. She says she is suicidal but does not have a plan. She says she is so depressed she has no energy to do anything at the house. She lays in bed waiting to be able to go to sleep. She cries and is agitated all the time. Her family says that she is restless in her sleep and acting out her dreams. Patient reports she has developed tardive dyskinesia due to all of her psychiatric medications and notes that this only makes it worse. Now everyone thinks she is using dope . Patient reports she feels agitated and has no idea why. She is restless and miserable. She reports compliance with all of her medications. Associated symptoms: Reports depression and suicidal ideation; Deny auditory hallucinations, visual hallucinations or homicidal ideation Related Data Home Medications Medication Instructions Recorded Confirmed epinephrine 0.3 mg/0.3 mL 0.3 mg IM Q10M PRN Allergic 11/26/19 04/01/24 injection, auto-injector (EpiPen Reaction 2-Duong) levonorgestrel 21 mcg/24 hr (up to See Rx Instructions .Route .COMPLEX 11/26/19 04/01/24 8 years) 52 mg intrauterine device (Mirena) Previous Rx's Medication Instructions Recorded auto titrating CPAP with supplies #1 ea 09/11/23 buspirone 10 mg tablet 10 mg PO BID #60 tabs 03/07/24 nicotine (polacrilex) 4 mg buccal 4 mg buccal Q6H PRN nicotine 03/07/24 lozenge (Nicorette) cravings #72 ea prazosin 5 mg capsule 5 mg PO BEDTIME 30 days #30 caps 03/07/24 quetiapine 150 mg tablet,extended 150 mg PO .HS #30 tabs 03/07/24 release 24 hr sertraline 100 mg tablet 200 mg (2 x 100 mg) PO QAM #60 tabs 03/07/24 varenicline 1 mg tablet 1 mg PO BID #60 tabs 03/07/24 Allergies Allergy/AdvReac Type Severity Reaction Status Date / Time bupropion [From Wellbutrin] Allergy ADR-Blurry Verified 06/02/24 17:06 Vision duloxetine [From Cymbalta] Allergy ADR-Agitate Verified 06/02/24 17:05 d metformin AdvReac Unknown Verified 06/02/24 17:06 Review of Systems General: Reports: 10 or more systems reviewed and unremarkable except in HPI and below Narrative: Patient reports delayed gastric emptying and frequent nausea. She drinks protein shakes and semisolid foods for this reason. Const: Denies: fever(s), chills or body aches Eyes: Denies: change in vision ENMT: Denies: throat pain Card: Denies: chest pain, edema or syncope Resp: Denies: dyspnea or productive cough GI: Denies: diarrhea : Denies: flank pain, dysuria or urinary frequency Musc: Denies: neck pain, back pain, extremity pain or extremity swelling Skin/Breast: Denies: rash or erythema Neuro: Denies: numbness in extremities, weakness in extremities, lack of coordination or difficulty walking Psych: Reports: anxiety, depression, mood swings, hopelessness, irritability, difficulty concentrating and suicidal ideation; Denies: visual hallucinations, auditory hallucinations, tactile hallucinations or homicidal ideation [facility] PFSH: Medical History (Updated 06/02/24 @ 17:41 by Leonard Andrews MD) Arrhythmia Irregular heart rate Medication management Diabetes Obesity (BMI 30.0-34.9) Post traumatic stress disorder (PTSD) Psychiatric care Insomnia Following information retrieved/edited from Behavior Assessment Report completed on 12/27/21:She reports taking Celexa, Topamax, Doxepin, Lunesta, and Prazosin as directed by her primary care physician. She reports that despite taking the medication she continues to have symptoms and has started to have blow outs at work, it's getting bad. Leonor reports a history of Trazodone, but said that it was making her nightmares worse. Current Psychiatric and Physical Symptoms: Leonor reports experiencing the following symptoms: cry easily, sweating palms, fatigue, bad dreams, difficulty concentrating, thoughts hard to dismiss, trouble sleeping, night terrors, easily annoyed/irritable, nervous feeling, excessive worries/fears, change in personality, work difficulties, thoughts of harming yourself, history of suicidal thoughts, has attempted to end her life, and diarrhea/constipation. History of methamphetamine use Anxiety, generalized Bipolar disorder Major depressive disorder, recurrent severe without psychotic features Allergic reaction to bee sting GERD (gastroesophageal reflux disease) History of hepatitis C treated with Harvoni Hyperlipemia PCOS (polycystic ovarian syndrome) Surgical History History of carpal tunnel surgery (~12/16/19) [place] [facility] [place] Performed by Dr. Yeager at in [place], [place] Family History Father Heart attack Diabetes mellitus, type 2 Family/Other Breast cancer Pat Aunt Liver cancer Maternal Uncle Mother Diabetes mellitus, type 2 Grandmother Diabetes mellitus, type 2 Grandfather Diabetes mellitus, type 2 Social History Smoking and tobacco/nicotine status: current every day tobacco/nicotine user Second hand smoke exposure: No Alcohol intake: current Substance/Drug Use: former Adopted: No Caregiver/support person: No Lives independently: Yes Household members: spouse Housing: House Marital status: service: No Current occupational status: employed 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 Do you think of yourself as: Straight/Heterosexual Current gender identity: Female Physical Exam Const: COMMON NORMALS: alert and well nourished EXAM LIMITATIONS: no altered mental status HENMT: COMMON NORMALS: normocephalic, atraumatic and external ears normal HEAD & SCALP: normocephalic and atraumatic EXTERNAL EAR: Yes external ears normal MOUTH: no muffled voice Eye: COMMON NORMALS: EOMs intact bilaterally, conjunctivae normal and no scleral icterus CONJUNCTIVA: Yes conjunctivae normal Neck/C-Spine: COMMON NORMALS: no JVD GENERAL: Yes normal visual inspection and Yes trachea midline Resp: COMMON NORMALS: No use of accessory muscles and clear to auscultation bilaterally AUSCULTATION: clear to auscultation bilaterally OTHER: Tachypnea Cardio: COMMON NORMALS: no JVD, regular rate and regular rhythm RATE: regular rate RHYTHM: regular rhythm GI: COMMON NORMALS: Soft to palpation and non-tender PALPATION: Yes Soft to palpation and No Guarding due to palpation present (GI) Extremity: COMMON NORMALS: normal to inspection Neuro: COMMON NORMALS: moves all extremities, no focal motor deficits and no sensory deficits noted SENSORIUM/ORIENTATION: Yes alert SPEECH: speech normal Psych: COMMON NORMALS: cooperative ATTITUDE: Yes agitated, No aggressive and No hostile ACTIVITY/MOTOR BEHAVIOR: Yes psychomotor agitation, Yes fidgeting, Yes hyperactivity and Yes restless SPEECH: Yes rapid, Yes loud and Yes Pressured speech present MOOD & AFFECT: Yes depressed mood, Yes irritable and Yes tearful THOUGHT PROCESS: racing thoughts THOUGHT CONTENT: Yes Suicidality present ATTENTION/CONCENTRATION: Yes attention grossly intact INSIGHT: Good insight present (Psych) Skin: COMMON NORMALS: no rashes or lesions noted, turgor normal and no jaundice GENERAL SKIN EXAM: no rashes or lesions noted and turgor normal Course ED course: Patient has remained calm and cooperative. Medical screening examination the emergency department unremarkable. Patient was accepted by [facility]. Vital Signs: Vital signs: Vital Signs Temperature 98.5 F 06/02/24 16:51 Pulse Rate 87 06/02/24 16:51 Respiratory Rate 22 H 06/02/24 16:51 Blood Pressure 147/101 06/02/24 16:51 Pulse Oximetry 97 06/02/24 16:51 Oxygen Delivery Me thod Room Air 06/02/24 16:51 MDM - Psych Medical Decision Making 39-year-old female appears to be suffering from a manic episode. She has a history of bipolar disease. Patient reports compliance with her medications. She has noticed to have some tardive dyskinesia changes. She denies any acute medical concerns other than having gallstones. She does endorse suicidal thoughts and hopelessness but does not have a specific plan for suicide. Patient will get a medical screening examination and we will reach out to the psychiatry team to discuss admission and evaluation for mental health. Lab Data 06/02/24 17:16 06/02/24 17:16 Laboratory Results WBC 13.24 10^3/uL (3.29-11.43) H 06/02/24 17:16 RBC 5.18 10^6/uL (3.85-5.65) 06/02/24 17:16 Hgb 15.10 g/dL (11.27-16.99) 06/02/24 17:16 Hct 46.0 % (36-47) 06/02/24 17:16 MCV 88.8 fl (85-98) 06/02/24 17:16 MCH 29.2 pg (27-33) 06/02/24 17:16 MCHC 32.8 g/dL (30-55) 06/02/24 17:16 RDW 13.3 % (12.1-15.1) 06/02/24 17:16 Plt Count 354 10^3/cmm (157-399) 06/02/24 17:16 MPV 9.0 fL (7.4-10.4) 06/02/24 17:16 Neut % (Auto) 62.7 % 06/02/24 17:16 Lymph % (Auto) 23.1 % 06/02/24 17:16 [place] % (Auto) 10.4 % 06/02/24 17:16 Eos % (Auto) 2.5 % 06/02/24 17:16 Baso % (Auto) 0.8 % 06/02/24 17:16 Neut # (Auto) 8.31 10^3/uL (1.8-7.7) H 06/02/24 17:16 Lymph # (Auto) 3.1 10^3/uL (0.8-4.8) 06/02/24 17:16 [place] # (Auto) 1.4 10^3/uL (0.2-0.9) H 06/02/24 17:16 Eos # (Auto) 0.3 10^3/uL (0.0-0.8) 06/02/24 17:16 Baso # (Auto) 0.1 10^3/uL (0.0-0.1) 06/02/24 17:16 Nucleated RBC % (auto) 0 % 06/02/24 17:16 Nucleated RBCs # 0.0 /100WBC 06/02/24 17:16 Sodium 140 mmol/L (136-145) 06/02/24 17:16 Potassium 4.1 mmol/L (3.5-5.1) 06/02/24 17:16 Chloride 104 mmol/L (98-107) 06/02/24 17:16 Carbon Dioxide 24 mmol/L (22-29) 06/02/24 17:16 Anion Gap 16.1 (5-19) 06/02/24 17:16 BUN 24 mg/dL (6-20) H 06/02/24 17:16 Creatinine 0.8 mg/dL (0.5-0.9) 06/02/24 17:16 GFR Calculation 79.9 mL/min (90-130) L 06/02/24 17:16 Glucose 91 mg/dL (65-115) 06/02/24 17:16 Calculated Osmolality 294 mOsm/kg (285-295) 06/02/24 17:16 Calcium 9.5 mg/dL (8.5-10.5) 06/02/24 17:16 Total Bilirubin 0.4 mg/dL (0.15-1.2) 06/02/24 17:16 AST 24 U/L (0-32) 06/02/24 17:16 ALT 36 U/L (0-33) H 06/02/24 17:16 Alkaline Phosphatase 108 U/L (35-105) H 06/02/24 17:16 Total Protein 7.7 g/dL (6.6-8.7) 06/02/24 17:16 Albumin 4.2 g/dL (3.5-5.2) 06/02/24 17:16 Globulin 3.5 g/dL (1.3-4.6) 06/02/24 17:16 TSH 1.19 uIU/mL (0.27-4.20) 06/02/24 17:16 HCG, Qual Negative (Negative) 06/02/24 17:13 Urine Color Yellow (Yellow) 06/02/24 17:13 Urine Appearance Cloudy (CLEAR) A 06/02/24 17:13 Urine pH 5.5 (5-7) 06/02/24 17:13 Ur Specific [place] 1.025 (1.005-1.030) 06/02/24 17:13 Urine Protein Negative (Negative) 06/02/24 17:13 Urine Glucose (UA) Negative (Normal) 06/02/24 17:13 Urine Ketones Negative (Negative) 06/02/24 17:13 Urine Blood Negative (Negative) 06/02/24 17:13 Urine Nitrate Negative (Negative) 06/02/24 17:13 Urine Bilirubin Negative (Negative) 06/02/24 17:13 Urine Urobilinogen 1.0 mg/dL (Negative) 06/02/24 17:13 Ur Leukocyte Esterase Negative (Negative) 06/02/24 17:13 Urine RBC 0-2 /hpf (0-2) 06/02/24 17:13 Urine WBC 0-5 /hpf (0-5) 06/02/24 17:13 Ur Squamous Epith Cells 0-5 /hpf (0-5) 06/02/24 17:13 Amorphous Sediment Not Reportable 06/02/24 17:13 Urine Bacteria None seen /hpf (NONE) 06/02/24 17:13 Hyaline Casts 0.81 /lpf 06/02/24 17:13 Salicylates < 0.3 mg/dL (3-10) L 06/02/24 17:16 Urine Opiates Screen Negative ng/mL (Negative) 06/02/24 17:13 Acetaminophen < 5.0 ug/mL (10-30) L 06/02/24 17:16 Ur Barbiturates Screen Negative ng/mL (Negative) 06/02/24 17:13 Ur Phencyclidine Scrn Negative ng/mL (Negative) 06/02/24 17:13 Ur Amphetamines Screen Negative ng/mL (Negative) 06/02/24 17:13 U Benzodiazepines Scrn Negative ng/mL (Negative) 06/02/24 17:13 Urine Cocaine Screen Negative ng/mL (Negative) 06/02/24 17:13 U Marijuana (THC) Screen Positive ng/mL (Negative) H 06/02/24 17:13 Ethyl Alcohol < 10 mg/dL (0-10) 06/02/24 17:16 RSV Antigen Negative (Negative) 06/02/24 17:17 SARS-CoV-2 Ag (Rapid) negative (Negative) 06/02/24 17:17 No radiology studies performed this visit Discharge Plan Discharge Patient Disposition: Xfer Psychiatric Hosp Clinical Impression: Bipolar disorder, manic phase Condition: Stable Prescriptions: No Action epinephrine [EpiPen 2-Duong] 0.3 mg/0.3 mL auto-injector 0.3 mg IM Q10M PRN (Reason: Allergic Reaction) Mirena 20 mcg/24 hours (5 yrs) 52 mg intrauterine device See Rx Instructions .ROUTE .COMPLEX Rx Instructions: IMPLANTED (DME) auto titrating CPAP with supplies See Rx Instructions .Route .MEDSUPPLY Qty: 1 0RF Rx Instructions: As directed varenicline 1 mg tablet 1 mg PO BID Qty: 60 2RF sertraline 100 mg tablet 200 mg PO QAM Qty: 60 2RF quetiapine 150 mg tablet extended release 24 hr 150 mg PO .HS Qty: 30 2RF prazosin 5 mg capsule 5 mg PO BEDTIME 30 Days Qty: 30 2RF buspirone 10 mg tablet 10 mg PO BID Qty: 60 2RF nicotine (polacrilex) [Nicorette] 4 mg lozenge 4 mg buccal Q6H PRN (Reason: nicotine cravings) Qty: 72 2RF Referrals: MARYELLEN Ware, RN [facility] [Primary Care Provider] - Coding Level of Care Code ED Internet Systems Administrator for Rickie Martinez
[2024-06-02 17:23] LABS: Basophils # 0.1 10^3/uL (0.0-0.1); Basophils % 0.8 %; Eosinophils # 0.3 10^3/uL (0.0-0.8); Eosinophils % 2.5 %; Lymphocytes # 3.1 10^3/uL (0.8-4.8); Lymphocytes % 23.1 %; Mean Corpuscular HGB Conc 32.8 g/dL (30-55); Mean Corpuscular Hemoglobin 29.2 pg (27-33); Mean Corpuscular Volume 88.8 fl (85-98); Monocytes # 1.4 10^3/uL (0.2-0.9); Monocytes % 10.4 %; Neutrophils # 8.31 10^3/uL (1.8-7.7); Neutrophils % 62.7 %; Nucleated Red Blood Cells % 0 %; Platelet Count 354 10^3/cmm (157-399); Red Blood Count 5.18 10^6/uL (3.85-5.65); Red Cell Distribution Width 13.3 % (12.1-15.1); White Blood Count 13.24 10^3/uL (3.29-11.43)
[2024-06-02 17:26] LABS: HCG Qualitative Urine. Negative (Negative)
[2024-06-02 17:46] LABS: Charge for UA Resulting for Rev
[2024-06-02 17:49] LABS: Bilirubin Urine Negative (Negative); Blood Urine Negative (Negative); Glucose Urine UA Negative (Normal); Ketones Urine Negative (Negative); Leukocyte Esterase Urine Negative (Negative); Nitrate Urine Negative (Negative); Protein Urine Negative (Negative); Specific Gravity, Urine 1.025 (1.005-1.030); Urine Appearance Cloudy (CLEAR); Urine Color Yellow (Yellow); pH Urine 5.5 (5-7)
[2024-06-02 17:51] LABS: Alanine Aminotransferase 36 U/L (0-33); Albumin Level 4.2 g/dL (3.5-5.2); Alkaline Phosphatase 108 U/L (35-105); Anion Gap 16.1 (5-19); Aspartate Amino Transferase 24 U/L (0-32); Blood Urea Nitrogen 24 mg/dL (6-20); Calcium 9.5 mg/dL (8.5-10.5); Carbon Dioxide 24 mmol/L (22-29); Chloride 104 mmol/L (98-107); Creatinine Clr Calc Pharmacy 102.9437; Globulin 3.5 g/dL (1.3-4.6); Glomerular Filtration Rate 79.9 mL/min (90-130); Glucose 91 mg/dL (65-115); Osmolality Calculated 294 mOsm/kg (285-295); Potassium 4.1 mmol/L (3.5-5.1); Sodium 140 mmol/L (136-145); Thyroid Stimulating Hormone 1.19 uIU/mL (0.27-4.20); Total Bilirubin 0.4 mg/dL (0.15-1.2); Total Protein 7.7 g/dL (6.6-8.7)
[2024-06-02 17:53] LABS: Acetaminophen < 5.0 ug/mL (10-30); Alcohol Level < 10 mg/dL (0-10); Salicylate < 0.3 mg/dL (3-10)
[2024-06-02 17:53] LABS: SARS Covid-2 Antigen negative (Negative)
[2024-06-02 17:55] LABS: Bacteria Urine None Seen /hpf; Hyaline Casts Urine 0.81 /lpf; RBC Urine 0-2 /hpf (0-2); Squamous Epithelial Cell Urine 0-5 /hpf (0-5); WBC Urine 0-5 /hpf (0-5)
[2024-06-02 17:57] LABS: RSV Transfer Patient (ED) Negative (Negative)
[2024-06-02 17:58] LABS: Amphetamines Screen Urine Negative (Negative); Barbiturates Screen Urine Negative (Negative); Benzodiazepines Screen Urine Negative (Negative); Cocaine Screen Urine Negative (Negative); Opiate Screen Urine Negative (Negative); PCP Screen Urine Negative (Negative); THC Screen Urine Positive (Negative)
[2024-06-02] MEDS: hyDROXYzine 25 mg Capsule PO (18:10)
[2024-06-02] MEDS: ALPRAZolam 0.5 mg Tablet PO (18:10)
--- NOTE | 2024-06-02 20:37 | ECG_ITS ---
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 Measurements Intervals [place] Rate: 70 P: 35 [place]: 170 QRS: -3 QRSD: 85 T: 38 QT: 427 QTc: 463 Interpretive Statements SINUS RHYTHM LOW QRS VOLTAGE IN PRECORDIAL LEADS [QRS DEFLECTION < 1.0 mV IN CHEST LEADS] Compared to ECG 12/30/2016 15:55:50 Low QRS voltage now present Electronically Signed On 06-03-2024 12:04:36 CDT by Hugo Perez M.D. [id number]
[2024-06-02 20:43] VITALS: BP 127/79; PULSE 92; RESP 16; TEMP 36.7; O2SAT 98
[2024-06-02] MEDS: ziprasidone 20 mg/mL SDV IM (21:54)
[2024-06-02] MEDS: water for injection-sterile 10 ML (21:54)
[2024-06-02] MEDS: LORazepam 2 mg/mL INJ 1 mL IM (21:54)
[2024-06-02 22:51] VITALS: BP 137/88; PULSE 57; RESP 18; O2SAT 98
--- NOTE | 2024-06-02 22:52 | PC.NURSE ---
96 HH Pt served with copy of 96 by this RN and security at 220. Pt was tearful and apologetic, A&Ox3. Pt stated she had no questions at that time. I want to get help, I yell at my son, my dad, for no reason.
== END 2024-06-03 08:33 ==
PROVIDERS: Emergency Provider Emergency Medicine; PCP Nurse Practitioner Family
DX: F31.9 Bipolar disorder, unspecified (principal); Z11.52 Encounter for screening for COVID-19; Z72.0 Tobacco use; E11.9 Type 2 diabetes mellitus without complications; Z86.19 Personal history of other infectious and parasitic diseases; E78.5 Hyperlipidemia, unspecified
CPT/HCPCS: 36415; 80053; 80306; 80307; 81003; 81015; 81025; 84443; 85025; 87426; 87899; 93005; 96372; 99285; J2060; J3486

== ENCOUNTER 2024-07-08 20:00 | Outpatient (CLI) | payer MEDICARE, MEDICAID, SELFPAY | END 2024-07-08 20:01 | disposition home or self-care (01) | LOC: SLEEP 07-09 00:17 | PROVIDERS: PCP Nurse Practitioner Family; Visit Provider Nurse Practitioner Family | DX: G47.33 Obstructive sleep apnea (adult) (pediatric) (principal) | CPT/HCPCS: 95811 ==

== ENCOUNTER → 2024-10-01 11:07 | Outpatient (BNVA) | payer MEDICARE, OTHER, SELFPAY | PROVIDERS: PCP Nurse Practitioner Family; Visit Provider Nurse Practitioner Family | DX: Z79.899 Other long term (current) drug therapy (principal); G47.33 Obstructive sleep apnea (adult) (pediatric); E78.2 Mixed hyperlipidemia | CPT/HCPCS: 80053; 80061; 81003; 82306; 83036; 84443; 85025 ==

== ENCOUNTER 2025-01-20 09:58 | Outpatient (CLI) | payer MEDICARE, SELFPAY ==
--- NOTE | 2025-01-20 10:00 | MM_ITS ---
WS: [id number] SCREENING DIGITAL TOMOSYNTHESIS MAMMOGRAM WITH CAD HISTORY: Z12.31 - Encounter for screening mammogram for malignant ... COMPARISON: None available. Bilateral CC and MLO with tomosynthesis views submitted. Synthetic mammography reviewed. Computer aided detection analyzed. Breast composition: There are scattered areas of fibroglandular density. No suspicious masses, microcalcifications or architectural distortion. MM/MM scr BI tomosynthesis [id number] IMPRESSION: BI-RADS: 1 - Negative. FOLLOW UP: 1 Year Follow-up
== END 2025-01-20 09:59 | disposition home or self-care (01) ==
PROVIDERS: PCP Nurse Practitioner; Visit Provider Nurse Practitioner Women's Health
DX: Z12.31 Encounter for screening mammogram for malignant neoplasm of breast (principal); R92.323 Mammographic fibroglandular density, bilateral breasts
CPT/HCPCS: 77063; 77067

== ENCOUNTER 2025-03-26 15:40 | Emergency (ER) | payer MEDICARE, SELFPAY ==
[2025-03-26 15:53] VITALS: BP 129/85; PULSE 95; RESP 16; TEMP 36.8; O2SAT 93
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
[2025-03-26] MEDS: tetanus-dipt-pertussis 0.5 mL SDV IM (18:28)
[2025-03-26] MEDS: bacitracin ointment Pkt 1 EACH TOPICAL (18:28)
== END 2025-03-26 18:39 | disposition home or self-care (01) ==
PROVIDERS: Emergency Provider Nurse Practitioner; PCP Nurse Practitioner
DX: T22.111A Burn of first degree of right forearm, initial encounter (principal); T65.91XA Toxic effect of unspecified substance, accidental (unintentional), initial encounter; Y92.481 Parking lot as the place of occurrence of the external cause; E11.9 Type 2 diabetes mellitus without complications; E78.5 Hyperlipidemia, unspecified; F17.200 Nicotine dependence, unspecified, uncomplicated
CPT/HCPCS: 16000; 90471; 90715; 99283; J9999